=== PATIENT | female | born 1950 | race American Indian/Alaskan Native ===

== ENCOUNTER 2016-12-21 09:48 | Observation (INO) | payer MEDICAID, MEDICARE ==
[2016-12-21 10:00] VITALS: BMI 30.7
--- NOTE | 2016-12-21 11:23 | ED PDOC ---
HPI: Back Time Seen by Provider: 12/21/16 10:49 Chief Complaint (Nursing): Back Pain Chief Complaint (Provider): low back pain History Per: Patient Additional Complaint(s): Patient presents to emergency department with lower back pain that started a few days ago. Denies any fall or trauma. Patient states pain does not radiate to her lower extremities. She is ambulatory with cane which she uses at baseline. The patient has history of arthritis in her legs. She denies any bowel or bladder dysfunction and states that ibuprofen has not helped her low back pain. Past Medical History Reviewed: Historical Data, Nursing Documentation, Vital Signs Vital Signs: Last Vital Signs Temp 98.4 F 12/21/16 10:00 Pulse 79 12/21/16 10:00 Resp 18 12/21/16 10:00 BP 143/74 12/21/16 10:00 Pulse Ox 97 12/21/16 10:00 - Medical History PMH: Arthritis, HTN - Surgical History Surgical History: Appendectomy, Tonsillectomy Other surgeries: tubal ligation, cervical biopsy x 2 - Family History Family History: States: No Known Family Hx, Hypertension - Living Arrangements Living Arrangements: With Family - Social History Current smoker - smoking cessation education provided: Yes (5-6 cigarettes per day) Alcohol: Social Drugs: Denies - Home Medications Home Medications: Ambulatory Orders Medication Instructions Recorded Enalapril/Hydrochlorothiazide 1 tab PO TID 03/20/16 [Enalapril-Hctz 10-25 mg Tablet] Gabapentin [Neurontin] 100 mg PO TID 12/21/16 - Allergies Allergies/Adverse Reactions: Allergies Allergy/AdvReac Type Severity Reaction Status Date / Time shellfish derived AdvReac Severe ITCHING Verified 12/21/16 10:42 metronidazole [From Flagyl] AdvReac ANAPHYLAXIS Verified 12/21/16 10:42 food AdvReac Mild ITCHING Uncoded 03/24/16 10:28 Review of Systems ROS Statement: Except As Marked, All Systems Reviewed And Found Negative Constitutional: Negative for: Fever, Chills Cardiovascular: Negative for: Chest Pain Respiratory: Negative for: Cough Gastrointestinal: Negative for: Nausea, Vomiting Genitourinary Female: Negative for: Dysuria, Frequency, Incontinence, Hematuria Musculoskeletal: Positive for: Back Pain. Negative for: Leg Pain Physical Exam - Reviewed Nursing Documentation Reviewed: Yes Vital Signs Reviewed: Yes - Physical Exam Appears: Positive for: Well, Non-toxic, No Acute Distress Skin: Negative for: Rash Cardiovascular/Chest: Positive for: Regular Rate, Rhythm Respiratory: Positive for: Normal Breath Sounds Gastrointestinal/Abdominal: Positive for: Soft. Negative for: Tenderness Back: Positive for: Vertebral Tenderness (Tenderness across lower lumbar region , no step-off, no CVA tenderness bilaterally, negative bilateral straight leg raise) Extremity: Positive for: Normal ROM. Negative for: Pedal Edema Neurologic/Psych: Positive for: Alert, Oriented, Gait (steady with cane used at baseline) - Laboratory Results Result Diagrams: 12/21/16 14:11 12/21/16 16:23 - ECG Interpretation Of ECG: NSR 63 bpm, 1st degree AV block, reviewed by PA and ED attending O2 Sat by Pulse Oximetry: 97 Pulse Ox Interpretation: Normal - Other Rad L/S Spine X-ray X-Ray: Interpreted by Me, Viewed By Me X-Ray Interpretation: no fx, no dis, marked degenerative changes Bedside chest X-Ray: Interpreted by Me, Viewed By Me X-Ray Interpretation: no acute finding Medical Decision Making Medical Decision Makin66 year old with low back pain. Plan: X-ray L/S Spine Toradol IM PO flexeril Urine dip 12:59 Shortly after patient returned from x-ray and received medications she developed facial swelling and discomfort in her mouth. Patient's is not aware of any known allergies to Toradol and Flexeril. Patient was given Solu-Medrol IV along with Benadryl IV and fluid bolus. She will continue to be monitored. 2:30 Patient was reevaluated 1 hr after meds were given, face still swollen however patient denies any shortness of breath or throat discomfort. No chest pain and shortness of breath or dyspnea on exertion, no rash. Will continue to monitor. 4:30 pm: Patient states face is now more swollen and it is now involving her lips. She denies any shortness of breath or throat discomfort. Dr. Dorado aware, 0.3 mg subcutaneous epinephrine was ordered. PMD is Dr. Taylor, case was d/w Dr. Christiansen, hospitalist who will admit patient to [facility]. Patient is aware of and agrees with admission. K is slightly elevated, specimen hemolyzed, repeat K ordered. Disposition - Clinical Impression Clinical Impression: Allergic reaction caused by a drug, Facial edema - Patient ED Disposition Is Patient to be Admitted: Yes - Disposition Disposition Time: 16:53 Condition: FAIR - Pt Status Changed To: Hospital Disposition Of: Observation - POA Present On Arrival: None Results - Lab Results Lab Results: 12/21/16 14:11 WBC 7.6 RBC 3.96 Hgb 14.3 Hct 41.9 MCV 105.9 H MCH 36.1 H MCHC 34.1 RDW 13.2 Plt Count 213 MPV 9.4 Neut % (Auto) 67.5 Lymph % (Auto) 20.5 [place] % (Auto) 10.0 Eos % (Auto) 0.7 Baso % (Auto) 1.3 Neut # 5.1 Lymph # 1.6 [place] # 0.8 Eos # 0.1 Baso # 0.1
[2016-12-21] MEDS ORDERED: DiphenhydrAMINE 50 mg/ml Inj ONE (12:36)
[2016-12-21] MEDS ORDERED: Sodium Chloride 0.9% 1,000 ML IV STA (13:18)
[2016-12-21] MEDS ORDERED: DiphenhydrAMINE 50 mg/ml Inj IV STA (13:18)
--- NOTE | 2016-12-21 14:28 | RAD ---
PROCEDURE: Lumbar spine dated 12/21/2016. HISTORY: pain COMPARISON: Comparison made with the CT scan abdomen pelvis 03/12/2016 which also imaged the lumbar spine in 3 planes FINDINGS: BONES: No acute compression fractures no retropulsed fragments. Minor chronic appearing anterior stature loss of the T12, L1 and L2 segments likely degenerative in origin of. The vertebral bodies otherwise exhibit normal stature. Slight straightening of the normal lumbar lordosis however vertebral bodies otherwise exhibit normal alignment. Facets normally aligned. DISC SPACES: Minor posterior disc space narrowing seen at the L5-S1 level. Remaining disc space heights are relatively maintained. Small marginal anterolateral and tiny posterior osteophyte formation. OTHER FINDINGS: None. IMPRESSION: No acute fractures. Minor multilevel degenerative spondylosis as described
[2016-12-21 14:35] LABS: BASO # 0.1 K/uL (0.0-0.2); BASO % 1.3 % (0.0-2.0); EOS # 0.1 K/uL (0.0-0.7); EOS % 0.7 % (0.0-4.0); HEMATOCRIT 41.9 % (34.0-47.0); LYMPH # 1.6 K/uL (1.0-4.3); LYMPH % 20.5 % (20.0-40.0); MEAN CELL VOLUME 105.9 fl (81.0-99.0); MEAN CORPUSCULAR HEMOGLOBIN 36.1 pg (27.0-31.0); MEAN CORPUSCULAR HGB CONC 34.1 g/dL (33.0-37.0); MEAN PLATELET VOLUME 9.4 fl (7.2-11.7); MONO # 0.8 K/uL (0.0-0.8); NEUT # 5.1 K/uL (1.8-7.0); NEUT % 67.5 % (50.0-75.0); NRBC % 0.1 % (0.0-0.0); RED CELL DISTRIBUTION WIDTH 13.2 % (11.5-14.5); WHITE BLOOD COUNT 7.6 K/uL (4.8-10.8)
[2016-12-21 16:39] LABS: ALB/GLOB RATIO 1.1 (1.0-2.1); ALKALINE PHOSPHATASE 73 U/L (38-126); ALT/SGPT 34 U/L (9-52); AST/SGOT 45 U/L (14-36); BILIRUBIN,TOTAL 0.8 mg/dl (0.2-1.3); BLOOD UREA NITROGEN 12 mg/dl (7-17); CALCIUM 9.7 mg/dL (8.4-10.2); CARBON DIOXIDE 30 mmol/L (22-30); CHLORIDE 97 mmol/L (98-107); GFR AFRICAN-AMERICAN > 60; GLUCOSE,RANDOM 105 mg/dL (65-105); SODIUM 139 mmol/l (132-148); TOTAL PROTEIN 7.9 G/DL (6.3-8.2)
[2016-12-21 16:40] LABS: POTASSIUM 5.1 MMOL/L (3.6-5.0)
[2016-12-21] MEDS ORDERED: EPINEPHrine 1 mg/ml (1:1000) Inj SC STA ×2 (16:42→19:05)
[2016-12-21] MEDS ORDERED: EPINEPHrine 1 mg/ml (1:1000) Inj ONE ×2 (16:48→18:48)
--- NOTE | 2016-12-21 17:56 | RAD ---
HISTORY: admit COMPARISON: No prior. FINDINGS: LUNGS: There appears to be some minor linear atelectasis left lung base PLEURA: No significant pleural effusion identified, no pneumothorax apparent. CARDIOVASCULAR: Normal. OSSEOUS STRUCTURES: No significant abnormalities. VISUALIZED UPPER ABDOMEN: Normal. OTHER FINDINGS: None. IMPRESSION: Suspect minimal linear atelectasis left left lung base
--- NOTE | 2016-12-21 20:43 | CP.PCM.HP ---
History of Present Illness - History of Present Illness History of Present Illness: 66 y/o female with PMH HTN presented to ER with lower back pain that started a few days ago. She denies any fall or trauma. Patient states that she was cleaning her house and the pain started afterwards.As per her pain was located on the lower lumbar area, sharp , does not radiate to her lower extremities with no weakness , no bowel or bladder dysfunction. She is ambulatory with cane which she uses at baseline. The patient has history of arthritis in her legs. She took Ibuprofen with minimal relief of her pain so decided to come to ER. In ER she was given Flexeril and toradol IV. Patient was noticed to develop facial edema and emerson oral swelling with no SOB or rash. She was treated with Epipen SQ and methylprednisolone. Patient still with significant perioral swelling at present so will place under observation in telemetry. She denies , CP, SOB, palpitations, PND, orthopnea, urinary or changes in bowel movements. She also gives history of prior similar reaction to an unknown allergen and has epipen at home. Allergies ; cyclobenzaprine, shellfish,iodine, flagyl PMH ; HTN Medication ; Enalapril, gabapentin ,ibuprofen Surgery; appendectomy, tonsillectomy,tubal ligation Family history ; mother had DM, emphysema father had DM, HTN,thyroid disorder Sister has thyroid disorder and history bresat cancer Social history ; , lives in [place] , smokes 4 cigg /day, drinks daily 4 glasses wine / day , sometimes smokes weed , does not work, has 23 children, walks with a cane ROS ;14 point review of systems negative except above Present on Admission - Present on Admission Any Indicators Present on Admission: No History of DVT/PE: No History of Uncontrolled Diabetes: No Review of Systems - Review of Systems All systems: reviewed and no additional remarkable complaints except Past Patient History - Infectious Disease Hx of Infectious Diseases: None - Tetanus Immunizations Tetanus Immunization: Unknown - Past Medical History & Family History Past Medical History?: Yes Past Family History: Reviewed and not pertinent - Past Social History Smoking Status: Light Smoker < 10 Cigarettes Daily Chewing Tobacco Use: No Cigar Use: No Alcohol: > 2 Drinks/Day Drugs: Cannabis Home Situation {Lives}: Alone Domestic Violence: Negative - CARDIAC Hx Hypertension: Yes - HEMATOLOGICAL/ONCOLOGICAL Hx Human Immunodeficiency Virus (HIV): No - MUSCULOSKELETAL/RHEUMATOLOGICAL Hx Arthritis: Yes - GASTROINTESTINAL Hx Bowel Surgery: Yes (partial bowel resection) - PSYCHIATRIC Hx Psychophysiologic Disorder: No Hx Substance Use: No - SURGICAL HISTORY Hx Appendectomy: Yes Hx Tonsillectomy: Yes - ANESTHESIA Hx Anesthesia: Yes Hx Anesthesia Reactions: No Meds Allergies/Adverse Reactions: Allergies Allergy/AdvReac Type Severity Reaction Status Date / Time cyclobenzaprine HCl Allergy ANGIOEDEMA Verified 12/21/16 19:47 [From Flexeril] shellfish derived AdvReac Severe ITCHING Verified 12/21/16 10:42 metronidazole [From Flagyl] AdvReac ANAPHYLAXIS Verified 12/21/16 10:42 food AdvReac Mild ITCHING Uncoded 03/24/16 10:28 Physical Exam - Constitutional Appears: Non-toxic, No Acute Distress - Head Exam Head Exam: ATRAUMATIC Additional comments: emerson oral swelling and facial swelling - Eye Exam Eye Exam: EOMI, PERRL Pupil Exam: NORMAL ACCOMODATION - ENT Exam ENT Exam: Mucous Membranes Moist, Normal Oropharynx - Neck Exam Neck exam: Positive for: Full Rom, Normal Inspection - Respiratory Exam Respiratory Exam: Clear to Auscultation Bilateral, NORMAL BREATHING PATTERN. absent: Rales, Rhonchi, Wheezes - Cardiovascular Exam Cardiovascular Exam: REGULAR RHYTHM, RRR, +S1, +S2. absent: JVD - GI/Abdominal Exam GI & Abdominal Exam: Normal Bowel Sounds, Soft. absent: Distended, Guarding, Rebound - Rectal Exam Rectal Exam: Deferred - Extremities Exam Extremities exam: Positive for: normal capillary refill, normal inspection, pedal pulses present. Negative for: calf tenderness, pedal edema - Back Exam Back exam: NORMAL INSPECTION. absent: CVA tenderness (L), CVA tenderness (R), paraspinal tenderness, tenderness, vertebral tenderness - Neurological Exam Neurological exam: Alert, CN II-XII Intact, Oriented x3, Reflexes Normal - Psychiatric Exam Psychiatric exam: Normal Affect, Normal Mood - Skin Skin Exam: Dry, Intact, Normal Color, Warm Results - Vital Signs Recent Vital Signs: Last Vital Signs Temp 98.5 F 12/21/16 20:05 Pulse 82 12/21/16 20:05 Resp 14 12/21/16 20:05 BP 134/90 12/21/16 20:05 Pulse Ox 98 12/21/16 20:05 - Labs Result Diagrams: 12/21/16 14:11 12/21/16 17:37 Labs: Laboratory Results - last 24 hr 12/21/16 12/21/16 16:23 17:37 Sodium 139 Potassium 5.1 H 3.9 Chloride 97 L Carbon Dioxide 30 Anion Gap 17 BUN 12 Creatinine 0.9 Est GFR ( Amer) > 60 Est GFR (Non-Af Amer) > 60 Random Glucose 105 Calcium 9.7 Total Bilirubin 0.8 AST 45 H D ALT 34 Alkaline Phosphatase 73 Total Protein 7.9 Albumin 4.1 Globulin 3.8 Albumin/Globulin Ratio 1.1 - Imaging and Cardiology Chest x-ray Additional comment: no acute pathology x ray spine Additional comment: no acute fracture Assessment & Plan (1) Allergic reaction caused by a drug Status: Acute Priority: High Comment: place under observation in telemetry. Start Solumedrol 60 mg IV Q8 , Benadryl (2) Back pain Status: Acute Comment: Motrin PRN (3) Hypertension Status: Chronic Priority: Medium Comment: resume home meds Enalapril (4) DVT prophylaxis Status: Acute Comment: SCD
[2016-12-21] MEDS ORDERED: methylPREDNISolone 60 MG in Sodium Chloride 0.9% 50 ML IVPB SCH (21:00)
[2016-12-22] MEDS: methylPREDNISolone 60 MG in Sodium Chloride 0.9% 50 ML IVPB SCH ×2 (05:37→14:16)
[2016-12-22 06:44] LABS: HEMATOCRIT 41.6 % (34.0-47.0); MEAN CELL VOLUME 105.8 fl (81.0-99.0); MEAN CORPUSCULAR HEMOGLOBIN 35.6 pg (27.0-31.0); MEAN CORPUSCULAR HGB CONC 33.7 g/dL (33.0-37.0); RED CELL DISTRIBUTION WIDTH 12.6 % (11.5-14.5); WHITE BLOOD COUNT 8.3 K/uL (4.8-10.8)
[2016-12-22 06:45] LABS: BLOOD UREA NITROGEN 19 mg/dl (7-17); CALCIUM 9.5 mg/dL (8.4-10.2); CARBON DIOXIDE 28 mmol/L (22-30); CHLORIDE 95 mmol/L (98-107); GFR AFRICAN-AMERICAN > 60; GLUCOSE,RANDOM 192 mg/dL (65-105); POTASSIUM 3.6 MMOL/L (3.6-5.0); SODIUM 137 mmol/l (132-148)
[2016-12-22 07:21] LABS: PARTIAL THROMBOPLASTIN TIME 27.8 SECONDS (23.3-32.5)
[2016-12-22] MEDS ORDERED: Patient's Own Med (Enalapril/Hydrochlorothiazide [Enalapril-Hctz 10-25 Mg Tablet] 1 TAB) PO SCH ×2 (09:00)
[2016-12-22] MEDS ORDERED: Enoxaparin 40 mg Syringe SC SCH (09:00)
[2016-12-22] MEDS ORDERED: Pantoprazole 40 mg EC Tab PO SCH (09:00)
--- NOTE | 2016-12-22 09:01 | CARD ---
APPROVED REPORT EKG Measurement Heart [id number] <Conclusion> Sinus rhythm with marked sinus arrhythmia with 1st degree AV block Otherwise normal ECG
--- NOTE | 2016-12-22 09:53 | CP.PCM.DIS ---
Provider - Provider Date of Admission: 12/21/16 14:14 Attending physician: Chirag Christiansen MD Primary care physician: Dr. Claudia Dominguez Time Spent in preparation of Discharge (in minutes): 20 Diagnosis - Discharge Diagnosis (1) Allergic reaction caused by a drug Status: Acute Priority: High (2) Back pain Status: Acute (3) Hypertension Status: Chronic Priority: Medium (4) DVT prophylaxis Status: Acute Hospital Course - Lab Results Lab Results: Most Recent Lab Values WBC 8.3 K/uL (4.8-10.8) 12/22/16 04:30 RBC 3.93 Mil/uL (3.80-5.20) 12/22/16 04:30 Hgb 14.0 g/dL (12.0-16.0) 12/22/16 04:30 Hct 41.6 % (34.0-47.0) 12/22/16 04:30 MCV 105.8 fl (81.0-99.0) H 12/22/16 04:30 MCH 35.6 pg (27.0-31.0) H 12/22/16 04:30 MCHC 33.7 g/dL (33.0-37.0) 12/22/16 04:30 RDW 12.6 % (11.5-14.5) 12/22/16 04:30 Plt Count 216 K/uL (130-400) 12/22/16 04:30 MPV 9.4 fl (7.2-11.7) 12/21/16 14:11 Neut % (Auto) 67.5 % (50.0-75.0) 12/21/16 14:11 Lymph % (Auto) 20.5 % (20.0-40.0) 12/21/16 14:11 [place] % (Auto) 10.0 % (0.0-10.0) 12/21/16 14:11 Eos % (Auto) 0.7 % (0.0-4.0) 12/21/16 14:11 Baso % (Auto) 1.3 % (0.0-2.0) 12/21/16 14:11 Neut # 5.1 K/uL (1.8-7.0) 12/21/16 14:11 Lymph # 1.6 K/uL (1.0-4.3) 12/21/16 14:11 [place] # 0.8 K/uL (0.0-0.8) 12/21/16 14:11 Eos # 0.1 K/uL (0.0-0.7) 12/21/16 14:11 Baso # 0.1 K/uL (0.0-0.2) 12/21/16 14:11 PT 10.0 SECONDS (9.6-11.2) 12/22/16 04:30 INR 0.96 (0.92-1.08) 12/22/16 04:30 APTT 27.8 SECONDS (23.3-32.5) 12/22/16 04:30 Sodium 137 mmol/l (132-148) 12/22/16 04:30 Potassium 3.6 MMOL/L (3.6-5.0) 12/22/16 04:30 Chloride 95 mmol/L (98-107) L 12/22/16 04:30 Carbon Dioxide 28 mmol/L (22-30) 12/22/16 04:30 Anion Gap 18 (10-20) 12/22/16 04:30 BUN 19 mg/dl (7-17) H 12/22/16 04:30 Creatinine 1.1 mg/dL (0.7-1.2) 12/22/16 04:30 Est GFR ( Amer) > 60 12/22/16 04:30 Est GFR (Non-Af Amer) 50 12/22/16 04:30 Random Glucose 192 mg/dL (65-105) H 12/22/16 04:30 Calcium 9.5 mg/dL (8.4-10.2) 12/22/16 04:30 Total Bilirubin 0.8 mg/dl (0.2-1.3) 12/21/16 16:23 AST 45 U/L (14-36) H D 12/21/16 16:23 ALT 34 U/L (9-52) 12/21/16 16:23 Alkaline Phosphatase 73 U/L (38-126) 12/21/16 16:23 Total Protein 7.9 G/DL (6.3-8.2) 12/21/16 16:23 Albumin 4.1 g/dL (3.5-5.0) 12/21/16 16:23 Globulin 3.8 gm/dL (2.2-3.9) 12/21/16 16:23 Albumin/Globulin Ratio 1.1 (1.0-2.1) 12/21/16 16:23 - Hospital Course Hospital Course: 66 y/o female with PMH HTN presented to ER with lower back pain that started a few days ago. She denies any fall or trauma. Patient states that she was cleaning her house and the pain started afterwards.As per her pain was located on the lower lumbar area, sharp , does not radiate to her lower extremities with no weakness , no bowel or bladder dysfunction. She is ambulatory with cane which she uses at baseline. The patient has history of arthritis in her legs. She took Ibuprofen with minimal relief of her pain so decided to come to ER. In ER she was given Flexeril and toradol IV. Patient was noticed to develop facial edema and emerson oral swelling with no SOB or rash. She was treated with Epipen SQ and methylprednisolone. Patient still had significant perioral swelling so was placed under observation in telemetry and started on Solumderol 60 mg IV Q8 and BenaDryl PRN . At present patient doing well, facial swelling decreased She denies , CP, SOB, palpitations, PND, orthopnea, urinary or changes in bowel movements. She has history of prior similar reaction to an unknown allergen and has epipen at home. Will discharge patient home. Follow up with risk lead for allergy test as out patient (1) Allergic reaction caused by a drug improved Received Solumedrol, epinephrine SQ, Benadryl (2) Back pain resolved most likely muskuloskeletal Motrin PRN (3) Hypertension Chronic, labile resumed home meds Enalapril/ HCTZ Discharge Exam - Head Exam Head Exam: ATRAUMATIC, NORMOCEPHALIC - Eye Exam Eye Exam: EOMI, Normal appearance, Periorbital swelling (more on the left ), PERRL Pupil Exam: NORMAL ACCOMODATION - ENT Exam ENT Exam: Mucous Membranes Moist, Normal Exam - Neck Exam Neck exam: Full Rom, Normal Inspection - Respiratory Exam Respiratory Exam: Clear to PA & Lateral, NORMAL BREATHING PATTERN. absent: Rales, Rhonchi, Wheezes - Cardiovascular Exam Cardiovascular Exam: REGULAR RHYTHM, RRR, +S1, +S2. absent: JVD - GI/Abdominal Exam GI & Abdominal Exam: Normal Bowel Sounds, Soft. absent: Distended, Guarding, Rebound, Tenderness - Rectal Exam Rectal Exam: Deferred - Extremities Exam Extremities exam: normal capillary refill, normal inspection, pedal pulses present - Back Exam Back exam: NORMAL INSPECTION - Neurological Exam Neurological exam: Alert, CN II-XII Intact, Oriented x3, Reflexes Normal - Psychiatric Exam Psychiatric exam: Normal Affect, Normal Mood - Skin Skin Exam: Dry, Intact, Normal Color, Warm Discharge Plan - Discharge Medications Prescriptions: DiphenhydrAMINE [Benadryl] 25 mg PO Q8 PRN #10 cap PRN Reason: Allergy Symptoms - Follow Up Plan Condition: GOOD Patient education suggested?: Yes Additional Instructions: Follow up with risk lead as out patient Referrals: Kendy Taylor MD [Medical Doctor] -
[2016-12-22 16:01] VITALS: BP 138/84; PULSE 64; RESP 20; TEMP 98.5; O2SAT 97
== END 2016-12-22 16:00 | disposition home or self-care (01) ==
LOC: H.ER 09:48 → H.EROBSV 14:14 → H.ERHOLD 14:44 → H.TEL 22:05
PROVIDERS: ADMIT Hospitalist; ATTEND Hospitalist
DX: M54.5 Low back pain (principal); M19.90 Unspecified osteoarthritis, unspecified site; T48.1X5A Adverse effect of skeletal muscle relaxants [neuromuscular blocking agents], initial encounter; T39.8X5A Adverse effect of other nonopioid analgesics and antipyretics, not elsewhere classified, initial encounter; I10 Essential (primary) hypertension; F17.210 Nicotine dependence, cigarettes, uncomplicated; Y92.239 Unspecified place in hospital as the place of occurrence of the external cause; R60.9 Edema, unspecified
CPT/HCPCS: 36415; 71010; 72100; 80048; 80053; 84132; 85025; 85027; 85610; 85730; 93005; 96365; 96372; 96374; 99285; G0378; J0171; J1200; J1650; J1885; J2930; J7040

== ENCOUNTER 2017-07-12 12:28 | Emergency (ER) | payer MEDICARE ==
[2017-07-12 12:29] VITALS: BMI 30.7
[2017-07-12 12:49] VITALS: BP 138/80; PULSE 72; RESP 18; TEMP 97.7; O2SAT 98
--- NOTE | 2017-07-12 13:06 | ED PDOC ---
HPI: General Adult Time Seen by Provider: 07/12/17 12:49 Chief Complaint (Nursing): Headache Chief Complaint (Provider): ran out of blood pressure and asthma meds History Per: Patient (states that she has been visiting [place] for the past 7 months and has run out of her usual meds for the past 1 1/2 weeks. She had intermittent HAs but denies other neurologic symptoms. She denies fever or chills. She does not have chest pain or shortness of breath.) History/Exam Limitations: no limitations Past Medical History Reviewed: Historical Data, Nursing Documentation, Vital Signs Vital Signs: Last Vital Signs Temp 97.7 F 07/12/17 12:44 Pulse 72 07/12/17 12:44 Resp 18 07/12/17 12:44 BP 138/80 07/12/17 12:44 Pulse Ox 98 07/12/17 12:44 - Medical History PMH: Arthritis (knees), HTN Denies: HIV, Chronic Kidney Disease - Surgical History Surgical History: Appendectomy, Tonsillectomy - Family History Family History: States: No Known Family Hx, Hypertension - Living Arrangements Living Arrangements: With Family - Social History Current smoker - smoking cessation education provided: Yes Alcohol: Occasional Drugs: Denies - Home Medications Home Medications: Ambulatory Orders Medication Instructions Recorded Enalapril/Hydrochlorothiazide 1 tab PO TID 03/20/16 [Enalapril-Hctz 10-25 mg Tablet] Gabapentin [Neurontin] 100 mg PO TID 12/21/16 DiphenhydrAMINE [Benadryl] 25 mg PO Q8 PRN #10 cap 12/22/16 Epinephrine [Epipen Auto-Injector] 0.3 mg SC ONCE PRN #1 ml 12/22/16 Albuterol 0.083% [Albuterol 0.083% 2.5 mg IH Q4H PRN #50 neb 07/12/17 Inhal [place] (2.5 mg/3 ml) UD] amLODIPine [Norvasc] 5 mg PO DAILY #30 tab 07/12/17 hydroCHLOROthiazide [Hydrodiuril] 25 mg PO DAILY #30 tab 07/12/17 - Allergies Allergies/Adverse Reactions: Allergies Allergy/AdvReac Type Severity Reaction Status Date / Time cyclobenzaprine HCl Allergy ANGIOEDEMA Verified 12/21/16 19:47 [From Flexeril] shellfish derived AdvReac Severe ITCHING Verified 12/21/16 10:42 metronidazole [From Flagyl] AdvReac ANAPHYLAXIS Verified 12/21/16 10:42 food AdvReac Mild ITCHING Uncoded 03/24/16 10:28 Review of Systems ROS Statement: Except As Marked, All Systems Reviewed And Found Negative Constitutional: Negative for: Fever, Chills Cardiovascular: Negative for: Chest Pain, Palpitations Respiratory: Negative for: Cough, Shortness of Breath Gastrointestinal: Negative for: Nausea, Vomiting, Abdominal Pain Physical Exam - Reviewed Nursing Documentation Reviewed: Yes Vital Signs Reviewed: Yes - Physical Exam Appears: Positive for: Well, Non-toxic, No Acute Distress Head Exam: Positive for: ATRAUMATIC, NORMAL INSPECTION, NORMOCEPHALIC Skin: Positive for: Normal Color, Warm, DRY Eye Exam: Positive for: EOMI, Normal appearance, PERRL ENT: Positive for: Normal ENT Inspection Neck: Positive for: Normal, Painless ROM Cardiovascular/Chest: Positive for: Regular Rate, Rhythm Respiratory: Positive for: CNT, Normal Breath Sounds Gastrointestinal/Abdominal: Positive for: Normal Exam, Bowel Sounds, Soft Back: Positive for: Normal Inspection Extremity: Positive for: Normal ROM Neurologic/Psych: Positive for: Alert, Oriented - ECG O2 Sat by Pulse Oximetry: 98 Disposition - Clinical Impression Clinical Impression: Hypertension, Medication refill - Patient ED Disposition Is Patient to be Admitted: No Doctor Will See Patient In The: Office Counseled Patient/Family Regarding: Diagnosis, Need For Followup, Rx Given - Disposition Referrals: [facility] [Outside] [facility] [Outside] [facility] [Outside] [facility] [Outside] Disposition: Routine/Home Disposition Time: 13:00 Condition: STABLE Prescriptions: Albuterol 0.083% [Albuterol 0.083% Inhal [place] (2.5 mg/3 ml) UD] 2.5 mg IH Q4H PRN #50 neb PRN Reason: Shortness Of Breath amLODIPine [Norvasc] 5 mg PO DAILY #30 tab hydroCHLOROthiazide [Hydrodiuril] 25 mg PO DAILY #30 tab Instructions: Hypertension (ED) - POA Present On Arrival: None
== END 2017-07-12 13:34 | disposition home or self-care (01) ==
LOC: H.ER 12:28
DX: I10 Essential (primary) hypertension (principal); Z76.0 Encounter for issue of repeat prescription

== ENCOUNTER 2017-11-08 15:33 | Inpatient (IN) | payer MEDICARE ==
[2017-11-08 15:34] VITALS: BMI 30.7
--- NOTE | 2017-11-08 16:57 | ED PDOC ---
Lower Extremity Pain/Injury Time Seen by Provider: 11/08/17 15:54 Chief Complaint (Nursing): Lower Extremity Problem/Injury Chief Complaint (Provider): Lower Extremity Problem/Injury History Per: Patient History/Exam Limitations: no limitations Onset/Duration Of Symptoms: Days Current Symptoms Are (Timing): Still Present Additional Complaint(s): 67 year old female with a past medical history of hypertension and deep vein thrombosis who presents to the emergency department with a complaint of a right leg swelling that started on 11/04/2017, and became progressively worse with pain. Patient initially thought it was due to extra salt in her diet and tried to elevate her leg frequently but has had no improvement. Patient feels pain now when she touches her leg. States she has a history of deep vein thrombosis about 23 years ago after having an appendectomy. Reports she had a right breast biopsy around the end of September 2017 and diagnosed with breast cancer. Patient is also complaining of increased shortness of breath over the last 2 days with some increased congestion and cough but no fever. PMD: Dr. Claudia JOHNSON Past Medical History Reviewed: Historical Data, Nursing Documentation, Vital Signs Vital Signs: Last Vital Signs Temp 98.5 F 11/08/17 15:45 Pulse 98 H 11/08/17 15:45 Resp 18 11/08/17 15:45 BP 153/91 H 11/08/17 15:45 Pulse Ox 97 11/08/17 15:45 - Medical History PMH: Arthritis (knees), HTN Denies: HIV, Chronic Kidney Disease - Surgical History Surgical History: Appendectomy, Tonsillectomy - Family History Family History: States: Hypertension - Immunization History Hx Tetanus Toxoid Vaccination: No Hx Influenza Vaccination: No Hx Pneumococcal Vaccination: No - Home Medications Home Medications: Ambulatory Orders Medication Instructions Recorded Hydrochlorothiazide [Microzide] 25 mg PO DAILY 11/08/17 amLODIPine [Norvasc] 5 mg PO DAILY 11/08/17 - Allergies Allergies/Adverse Reactions: Allergies Allergy/AdvReac Type Severity Reaction Status Date / Time cyclobenzaprine HCl Allergy ANGIOEDEMA Verified 12/21/16 19:47 [From Flexeril] enalapril Allergy RASH Verified 11/08/17 16:14 iodine Allergy SWELLING Verified 10/30/17 10:43 lisinopril Allergy SWELLING Verified 10/30/17 11:21 shellfish derived AdvReac Severe ITCHING Verified 12/21/16 10:42 metronidazole [From Flagyl] AdvReac ANAPHYLAXIS Verified 12/21/16 10:42 food AdvReac Mild ITCHING Uncoded 03/24/16 10:28 Review of Systems ROS Statement: Except As Marked, All Systems Reviewed And Found Negative (As per HPI, otherwise negative) Constitutional: Negative for: Fever ENT: Positive for: Nose Congestion Respiratory: Positive for: Cough, Shortness of Breath Musculoskeletal: Positive for: Leg Pain (Right leg swelling) Physical Exam - Reviewed Nursing Documentation Reviewed: Yes Vital Signs Reviewed: Yes - Physical Exam Appears: Positive for: Non-toxic, In Acute Distress (Mild painful distress) Skin: Positive for: Warm, Dry Eye Exam: Positive for: EOMI, PERRL ENT: Negative for: Pharyngeal Erythema, Tonsillar Exudate Neck: Positive for: Painless ROM, Supple Cardiovascular/Chest: Positive for: Other (Surgical wound noted to the lower lateral region of the right breast. Wound clean, dry, and intact. ) Respiratory: Positive for: Decreased Breath Sounds (Diffuse). Negative for: Rhonchi, Wheezing, Respiratory Distress Gastrointestinal/Abdominal: Positive for: Soft. Negative for: Tenderness, Mass , Distended Back: Positive for: Normal Inspection. Negative for: Decreased ROM Extremity: Positive for: Pedal Edema (Diffuse edematous with mild pitting. ), Calf Tenderness Lymphatic: Negative for: Adenopathy Neurologic/Psych: Positive for: Alert. Negative for: Motor/Sensory Deficits - Laboratory Results Result Diagrams: 11/09/17 06:11 11/09/17 06:11 - ECG O2 Sat by Pulse Oximetry: 97 (RA) Pulse Ox Interpretation: Normal Medical Decision Making Medical Decision Making: Time: 163 Initial Impression: Right leg swelling. Differential include but not limited to deep vein thrombosis (DVT), congestive heart failure (CHF), fluid overload, and pulmonary embolism. Initial Plan: --Labs and chemistry work up ordered --Influenza A B --Chest x-ray --Extremity US --Reevaluation Time: 1656 --Extremity Ultrasound FINDINGS: COMMON FEMORAL VEIN: Unremarkable. SUPERFICAL FEMORAL VEIN: Unremarkable. POPLITEAL VEIN: Unremarkable. POSTERIOR TIBIAL VEIN: Unremarkable. OTHER FINDINGS: None. IMPRESSION: No evidence of deep venous thrombosis in the right lower extremity. Time: 1712 --Positive for influenza a On reeval and pt now wheezing diffusely. Nebulizer ordered. Pt with COPD exacerbation, flu and possible PE (unable to obtain CT due to iodine allergy.) Needs hospitalization for management. BOWEN Landrum Hospitalist (for PMD [facility] Dr Taylor) Scribe Attestation: Documented by Morena Lord, acting as a scribe for Marianne Lutz MD. Provider Scribe Attestation: All medical record entries made by the Scribe were at my direction and personally dictated by me. I have reviewed the chart and agree that the record accurately reflects my personal performance of the history, physical exam, medical decision making, and the department course for this patient. I have also personally directed, reviewed, and agree with the discharge instructions and disposition. Disposition - Clinical Impression Clinical Impression: COPD exacerbation, Influenza, Leg edema, right Discussed With Dr.: Francisco Landrum Doctor Will See Patient In The: ED Counseled Patient/Family Regarding: Studies Performed, Diagnosis - Disposition Disposition Time: 18:45 Condition: GUARDED - Pt Status Changed To: Hospital Disposition Of: Observation - POA Present On Arrival: Deep Vein Thrombosis / PE (DVT history, possible current PE)
--- NOTE | 2017-11-08 16:59 | US ---
PROCEDURE: Right lower extremity venous duplex Doppler. HISTORY: RIGHT leg swelling h/o dvt COMPARISON: None available. TECHNIQUE: Common femoral, superficial femoral, popliteal and posterior tibial veins were evaluated. Flow was assessed with color Doppler, compressibility, assessment of phasic flow and augmentation response. FINDINGS: COMMON FEMORAL VEIN: Unremarkable. SUPERFICIAL FEMORAL VEIN: Unremarkable. POPLITEAL VEIN: Unremarkable. POSTERIOR TIBIAL VEIN: Unremarkable. OTHER FINDINGS: None. IMPRESSION: No evidence of deep venous thrombosis in the right lower extremity.
[2017-11-08 17:21] LABS: BASO % 0.5 % (0.0-2.0); EOS % 0.1 % (0.0-4.0); HEMOGLOBIN 14.6 g/dL (12.0-16.0); LYMPH # 1.2 K/uL (1.0-4.3); LYMPH % 15.6 % (20.0-40.0); MEAN CELL VOLUME 109.7 fl (81.0-99.0); MEAN CORPUSCULAR HEMOGLOBIN 37.8 pg (27.0-31.0); MEAN CORPUSCULAR HGB CONC 34.5 g/dL (33.0-37.0); MEAN PLATELET VOLUME 8.4 fl (7.2-11.7); MONO # 0.5 K/uL (0.0-0.8); MONO % 6.3 % (0.0-10.0); NEUT # 5.9 K/uL (1.8-7.0); NEUT % 77.5 % (50.0-75.0); NRBC % 0.1 % (0.0-0.0); RBC 3.87 Mil/uL (3.80-5.20); RED CELL DISTRIBUTION WIDTH 13.7 % (11.5-14.5); WHITE BLOOD COUNT 7.7 K/uL (4.8-10.8)
[2017-11-08 17:27] LABS: INR 0.9 (0.9-1.2); PROTHROMBIN TIME 10.1 Seconds (9.8-13.1)
[2017-11-08 18:18] LABS: ALB/GLOB RATIO 1.2 (1.0-2.1); ALT/SGPT 36 U/L (9-52); AST/SGOT 44 U/L (14-36); BLOOD UREA NITROGEN 9 mg/dl (7-17); CALCIUM 9.2 mg/dL (8.4-10.2); GFR AFRICAN-AMERICAN > 60; GFR NON-AFRICAN AMERICAN > 60; MAGNESIUM 1.5 MG/DL (1.6-2.3)
[2017-11-08 18:31] LABS: B-TYPE NATRIURETIC PEPTIDE 74.8 pg/ml (0-900)
--- NOTE | 2017-11-08 18:48 | RAD ---
HISTORY: Cough, shortness of breath COMPARISON: 12/21/2016 TECHNIQUE: Chest PA and lateral FINDINGS: LUNGS: No active pulmonary disease. PLEURA: No significant pleural effusion identified. No pneumothorax apparent. CARDIOVASCULAR: No radiographic findings to suggest acute or significant cardiovascular disease. OSSEOUS STRUCTURES: No significant abnormalities. VISUALIZED UPPER ABDOMEN: Normal. OTHER FINDINGS: None. IMPRESSION: No active disease. No significant interval change compared to the prior examination(s).
[2017-11-08] MEDS ORDERED: Albuterol-Ipratrop 3 mg / 0.5 (3 ml) UD INH STA (18:55)
[2017-11-08] MEDS ORDERED: Magnesium Oxide 400 mg Tab UD PO STA (19:14)
[2017-11-08] MEDS ORDERED: Potassium Chloride 20 mEq ER Tab PO STA (19:14)
[2017-11-08] MEDS ORDERED: Enoxaparin 100 mg Syringe SC STA (19:31)
--- NOTE | 2017-11-08 19:52 | CP.PCM.HP ---
History of Present Illness - History of Present Illness History of Present Illness: 67 yo female with history of HTN and diagnosed recently with right breast cancer after biopsy last week came in complaining of bilateral leg swelling associated with SOB after walking a short distance and episodes of difficulty breathing at night. Condition has been going on for about a month sometimes accompanied with left sided chest discomfort. Niece advised her to be checked up in the ER fearing she might have clots in the leg specially since she had history of DVT in the right upper femoral about 20 yrs ago. Patient also added having increased nasal congestion and coughing the past few days. Present on Admission - Present on Admission Any Indicators Present on Admission: Yes History of DVT/PE: Yes History of Uncontrolled Diabetes: No Urinary Catheter: No Decubitus Ulcer Present: No Review of Systems - Review of Systems All systems: reviewed and no additional remarkable complaints except (aside from those mentioned above, 14 point system review were negative by me) Past Patient History - Infectious Disease Hx of Infectious Diseases: None - Tetanus Immunizations Tetanus Immunization: Unknown - Past Medical History & Family History Past Medical History?: Yes - Past Social History Smoking Status: Light Smoker < 10 Cigarettes Daily Alcohol: > 2 Drinks/Day Drugs: Denies Home Situation {Lives}: With Family - CARDIAC Hx Hypertension: Yes - PULMONARY Hx Respiratory Disorders: No - NEUROLOGICAL Hx Neurological Disorder: No - HEENT Hx HEENT Problems: No - RENAL Hx Chronic Kidney Disease: No - ENDOCRINE/METABOLIC Hx Endocrine Disorders: No - HEMATOLOGICAL/ONCOLOGICAL Hx Cancer: Yes (right breast cancer diagnosed about a week ago) Hx Human Immunodeficiency Virus (HIV): No - INTEGUMENTARY Hx Dermatological Problems: No - MUSCULOSKELETAL/RHEUMATOLOGICAL Hx Arthritis: Yes (knees) - GASTROINTESTINAL Hx Gastrointestinal Disorders: Yes Hx Bowel Surgery: Yes (partial bowel resection) - GENITOURINARY/GYNECOLOGICAL Hx Genitourinary Disorders: No - PSYCHIATRIC Hx Psychophysiologic Disorder: No Hx Substance Use: Yes - SURGICAL HISTORY Hx Surgeries: Yes Hx Appendectomy: Yes Hx Breast Biopsy: Yes (right breast biopsied a week ago) Hx Tonsillectomy: Yes Other/Comment: partial bowel resection - ANESTHESIA Hx Anesthesia: Yes Hx Anesthesia Reactions: No Hx Malignant Hyperthermia: No Meds Allergies/Adverse Reactions: Allergies Allergy/AdvReac Type Severity Reaction Status Date / Time cyclobenzaprine HCl Allergy ANGIOEDEMA Verified 12/21/16 19:47 [From Flexeril] enalapril Allergy RASH Verified 11/08/17 16:14 iodine Allergy SWELLING Verified 10/30/17 10:43 lisinopril Allergy SWELLING Verified 10/30/17 11:21 shellfish derived AdvReac Severe ITCHING Verified 12/21/16 10:42 metronidazole [From Flagyl] AdvReac ANAPHYLAXIS Verified 12/21/16 10:42 food AdvReac Mild ITCHING Uncoded 03/24/16 10:28 Physical Exam - Constitutional Appears: No Acute Distress - Head Exam Head Exam: ATRAUMATIC - Eye Exam Eye Exam: absent: Scleral icterus - ENT Exam ENT Exam: Mucous Membranes Moist - Neck Exam Neck exam: Negative for: Meningismus - Respiratory Exam Respiratory Exam: absent: Rhonchi, Wheezes, Respiratory Distress - Cardiovascular Exam Cardiovascular Exam: REGULAR RHYTHM, +S1, +S2 - GI/Abdominal Exam GI & Abdominal Exam: Soft. absent: Tenderness - Rectal Exam Rectal Exam: Deferred - Extremities Exam Extremities exam: Positive for: pedal edema (non-pitting pedal edema), pedal pulses present. Negative for: calf tenderness - Back Exam Back exam: absent: tenderness - Neurological Exam Neurological exam: Alert, Oriented x3 - Psychiatric Exam Psychiatric exam: Normal Affect - Skin Skin Exam: Dry, Intact Results - Vital Signs Recent Vital Signs: Last Vital Signs Temp 98.5 F 11/08/17 15:45 Pulse 98 H 11/08/17 15:45 Resp 18 11/08/17 15:45 BP 153/91 H 11/08/17 15:45 Pulse Ox 97 11/08/17 18:27 - Labs Result Diagrams: 11/08/17 17:13 11/08/17 17:57 Labs: Laboratory Results - last 24 hr 11/08/17 11/08/17 11/08/17 17:13 17:13 17:13 WBC 7.7 RBC 3.87 Hgb 14.6 Hct 42.5 MCV 109.7 H D MCH 37.8 H MCHC 34.5 RDW 13.7 Plt Count 228 MPV 8.4 Neut % (Auto) 77.5 H Lymph % (Auto) 15.6 L [place] % (Auto) 6.3 Eos % (Auto) 0.1 Baso % (Auto) 0.5 Neut # (Auto) 5.9 Lymph # (Auto) 1.2 [place] # (Auto) 0.5 Eos # (Auto) 0.0 Baso # (Auto) 0.0 PT 10.1 INR 0.9 APTT 28.0 D-Dimer, Quantitative Cancelled Sodium Cancelled Potassium Cancelled Chloride Cancelled Carbon Dioxide Cancelled Anion Gap Cancelled BUN Cancelled Creatinine Cancelled Est GFR ( Amer) Cancelled Est GFR (Non-Af Amer) Cancelled Random Glucose Cancelled Calcium Cancelled Phosphorus Cancelled Magnesium Cancelled Total Bilirubin Cancelled AST Cancelled ALT Cancelled Alkaline Phosphatase Cancelled Troponin I Cancelled NT-Pro-B Natriuret Pep Cancelled Total Protein Cancelled Albumin Cancelled Globulin Cancelled Albumin/Globulin Ratio Cancelled Influenza Typ A,B (EIA) 11/08/17 11/08/17 11/08/17 17:13 17:57 17:57 WBC RBC Hgb Hct MCV MCH MCHC RDW Plt Count MPV Neut % (Auto) Lymph % (Auto) [place] % (Auto) Eos % (Auto) Baso % (Auto) Neut # (Auto) Lymph # (Auto) [place] # (Auto) Eos # (Auto) Baso # (Auto) PT INR APTT D-Dimer, Quantitative 243 H Sodium 137 Potassium 3.4 L Chloride 95 L Carbon Dioxide 33 H Anion Gap 12 BUN 9 Creatinine 0.8 Est GFR ( Amer) > 60 Est GFR (Non-Af Amer) > 60 Random Glucose 93 Calcium 9.2 Phosphorus 2.9 Magnesium 1.5 L Total Bilirubin 0.6 AST 44 H ALT 36 Alkaline Phosphatase 89 Troponin I < 0.0120 NT-Pro-B Natriuret Pep 74.8 Total Protein 7.3 Albumin 4.0 Globulin 3.3 Albumin/Globulin Ratio 1.2 Influenza Typ A,B (EIA) Pos for influenza a H Assessment & Plan - Assessment and Plan (Free Text) Assessment: 67 yo female with history of HTN and recent diagnosed right breast cancer came in because of bilateral leg swelling associated with SOB after a short distance walk and waking up at night with difficulty of breathing. Concerned that she might be having another DVT. 1. Flu start Tamiflu 2. Right Breast Cancer elevated Ddimer maybe secondary to cancer Oncology consult with Dr Johnson 3. R/O Pulmonary Embolism start therapeutic Lovenox 90mg SC q 12hrs VQ scan in am (patient allergic to Iodine) 4. R/O CHF ECHO
[2017-11-08] MEDS ORDERED: Albuterol 0.083% Inhal Sol (2.5 mg/3 mL) UD IH PRN (20:27)
[2017-11-08] MEDS ORDERED: Enoxaparin 80 mg Syringe SC SCH (21:00)
[2017-11-09] MEDS ORDERED: Potassium Chloride 20 mEq ER Tab PO ONE (00:42)
[2017-11-09 06:54] LABS: BASO % 0.4 % (0.0-2.0); EOS % 0.2 % (0.0-4.0); HEMOGLOBIN 12.9 g/dL (12.0-16.0); LYMPH % 17.6 % (20.0-40.0); MEAN CELL VOLUME 109.9 fl (81.0-99.0); MEAN CORPUSCULAR HEMOGLOBIN 38.3 pg (27.0-31.0); MEAN CORPUSCULAR HGB CONC 34.9 g/dL (33.0-37.0); MEAN PLATELET VOLUME 8.2 fl (7.2-11.7); MONO # 0.5 K/uL (0.0-0.8); MONO % 9.2 % (0.0-10.0); NEUT # 4.2 K/uL (1.8-7.0); NEUT % 72.6 % (50.0-75.0); NRBC % 0.2 % (0.0-0.0); RBC 3.35 Mil/uL (3.80-5.20); RED CELL DISTRIBUTION WIDTH 13.6 % (11.5-14.5); WHITE BLOOD COUNT 5.7 K/uL (4.8-10.8)
[2017-11-09 07:18] LABS: BLOOD UREA NITROGEN 7 mg/dl (7-17); CALCIUM 9.1 mg/dL (8.4-10.2); GFR AFRICAN-AMERICAN > 60; GFR NON-AFRICAN AMERICAN > 60
[2017-11-09] MEDS ORDERED: Patient's Own Med (Enalapril/Hydrochlorothiazide [Enalapril-Hctz 10-25 Mg Tablet] 1 TAB) PO SCH (09:00)
--- NOTE | 2017-11-09 10:27 | CARD ---
APPROVED REPORT EKG Measurement Heart [id number] <Conclusion> Sinus rhythm with 1st degree AV block Otherwise normal ECG
[2017-11-09] MEDS: Enoxaparin 100 mg Syringe SC SCH ×2 (11:51→21:42)
[2017-11-09] MEDS: Pantoprazole 40 mg EC Tab PO SCH (11:54)
--- NOTE | 2017-11-09 16:39 | CP.PCM.PN ---
Subjective - Date & Time of Evaluation Date of Evaluation: 11/09/17 Time of Evaluation: 15:20 - Subjective Subjective: Patient seen and examined. Complained of soreness on right breast. Objective - Vital Signs/Intake and Output Vital Signs (last 24 hours): Temp Pulse Resp BP Pulse Ox 98.7 F 83 18 135/88 97 11/09/17 16:13 11/09/17 16:13 11/09/17 16:13 11/09/17 16:13 11/09/17 16:33 - Medications Medications: Current Medications Acetaminophen (Tylenol 325mg Tab) 650 mg PO Q6 PRN PRN Reason: Pain, Mild (1-3) Last Admin: 11/09/17 16:18 Dose: 650 mg Albuterol Sulfate (Albuterol 0.083% Inhal [place] (2.5 Mg/3 Ml) Ud) 2.5 mg IH Q4H PRN PRN Reason: Shortness of Breath Amlodipine Besylate (Norvasc) 5 mg PO DAILY [facility] Last Admin: 11/09/17 11:49 Dose: 5 mg Docusate Sodium (Colace) 100 mg PO BID PRN PRN Reason: Constipation Enoxaparin Sodium (Lovenox) 90 mg SC Q12 ANA PRN Reason: Protocol Last Admin: 11/09/17 11:51 Dose: 90 mg Gabapentin (Neurontin) 100 mg PO TID [facility] Last Admin: 11/09/17 13:39 Dose: Not Given Hydrochlorothiazide (Hydrodiuril) 25 mg PO DAILY [facility] Last Admin: 11/09/17 11:48 Dose: 25 mg Oseltamivir Phosphate (Tamiflu Cap) 75 mg PO BID ANA PRN Reason: Protocol Last Admin: 11/09/17 16:19 Dose: 75 mg Pantoprazole Sodium (Protonix Ec Tab) 40 mg PO DAILY [facility] Last Admin: 11/09/17 11:54 Dose: 40 mg - Labs Labs: 11/09/17 06:11 11/09/17 06:11 PT 10.1 Seconds (9.8-13.1) 11/08/17 17:13 INR 0.9 (0.9-1.2) 11/08/17 17:13 APTT 28.0 Seconds (25.6-37.1) 11/08/17 17:13 - Constitutional Appears: No Acute Distress - Head Exam Head Exam: ATRAUMATIC - Eye Exam Eye Exam: absent: Scleral icterus - ENT Exam ENT Exam: Mucous Membranes Moist - Neck Exam Neck Exam: absent: Meningismus - Respiratory Exam Respiratory Exam: absent: Rhonchi, Wheezes, Respiratory Distress - Cardiovascular Exam Cardiovascular Exam: REGULAR RHYTHM, +S1, +S2 - GI/Abdominal Exam GI & Abdominal Exam: Soft. absent: Tenderness - Rectal Exam Rectal Exam: Deferred - Extremities Exam Extremities Exam: Pedal Edema (non-pitting edema of both legs). 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 Concerned that she might be having DVT. Had DVT of the right femoral vein 20 yrs ago. 1. Flu continue Tamiflu 2. Right Breast Cancer poorly differentiated invasive intraductal carcinoma with metastasis on breast biopsy, 11/02/2017 Oncologist, Dr Whittington, managing as out patient elevated Ddimer maybe secondary to cancer activating hemostasis and fibrinolysis which have been reported 3. R/O Pulmonary Embolism continue therapeutic Lovenox 90mg SC q 12hrs until ruled out on VQ scan on Saturday unable to do CT angio because patient is allergic to iodine 4. R/O CHF experiancing symptoms of CHF: dyspnea on mild exertion, PND and bilateral leg sweeling official reading of ECHO still pending cardiology consult with Dr Engle (will see patient tomorrow)
[2017-11-10 05:02] VITALS: RESP 16
[2017-11-10] MEDS: Enoxaparin 100 mg Syringe SC SCH (10:01)
[2017-11-10] MEDS: Pantoprazole 40 mg EC Tab PO SCH (10:03)
[2017-11-10 12:20] VITALS: BP 114/75; PULSE 75; TEMP 98.2; O2SAT 98
--- NOTE | 2017-11-10 13:12 | CP.PCM.CON ---
History of Present Illness - History of Present Illness History of Present Illness: This 67-year -old female came into the emergency room complaining of pedal edema over the last 4-5 days. She was recently diagnosed as having breast malignancy and initial workup has just started. She had been a smoker for approximately 40 years and finally quit a week back. She gives history of hypertension and has taken her medications regularly. She denies prior history of chest pain or myocardial infarction or symptoms of congestive cardiac failure. She reports that her ambulation is mostly hampered by osteoarthritic pains in the knees but can walk 6-7 blocks at her own pace without getting chest pain or shortness of breath. She denies any history of orthopnea. She is not a diabetic. She has a family history of hypertension in that her father was a hypertensive. Physical examination shows a middle aged pleasant -[place] female who is sitting up in bed alert awake and coherent. She is free of any dyspnea and breathes at 14-16 breast per minute and can carry on a conversation without any difficulty. Her heart rate was 74 bpm regular and her blood pressure was 122/74 mmHg. Her jugular venous pressure was not elevated and there was no edema over her lower extremities. The pedal pulses were well felt. There were no carotid bruits. Her apex was not palpable the first and second heart sounds are normal. There was no gallop and there were no murmurs. There were no rales. Abdomen was soft liver and spleen were not palpable. Her electro-cardiogram showed sinus rhythm within normal electro-Cardiologic pattern. An earlier electrocardiogram of November 2016 also appeared normal without any Q waves. Her echocardiogram done yesterday shows preserved left ventricular systolic function with no significant valve abnormalities. Her lab data shows a normal proBNP and her chest x-ray does not show any evidence of congestive cardiac failure. Ultrasound of the lower extremities has failed to reveal any evidence of deep vein thrombosis. Impression: The patient does not have any evidence of congestive cardiac failure. The patient is a hypertensive with a long history of chronic cigarette use. Recently diagnosed breast malignancy with workup in progress. The patient may be allowed to return home and continue her management as an outpatient. Past Patient History - Infectious Disease Hx of Infectious Diseases: None - Tetanus Immunizations Tetanus Immunization: Unknown - Past Medical History & Family History Past Medical History?: Yes - Past Social History Smoking Status: Former Smoker - CARDIAC Hx Hypertension: Yes - PULMONARY Hx Respiratory Disorders: No - NEUROLOGICAL Hx Neurological Disorder: No - HEENT Hx HEENT Problems: No - RENAL Hx Chronic Kidney Disease: No - ENDOCRINE/METABOLIC Hx Endocrine Disorders: No - HEMATOLOGICAL/ONCOLOGICAL Hx Human Immunodeficiency Virus (HIV): No - INTEGUMENTARY Hx Dermatological Problems: No - MUSCULOSKELETAL/RHEUMATOLOGICAL Hx Arthritis: Yes (knees) - GASTROINTESTINAL Hx Gastrointestinal Disorders: Yes Hx Bowel Surgery: Yes (partial bowel resection) - GENITOURINARY/GYNECOLOGICAL Hx Genitourinary Disorders: No - PSYCHIATRIC Hx Psychophysiologic Disorder: No Hx Substance Use: No - SURGICAL HISTORY Hx Appendectomy: Yes Hx Tonsillectomy: Yes - ANESTHESIA Hx Anesthesia: Yes Hx Anesthesia Reactions: No Hx Malignant Hyperthermia: No Meds Allergies/Adverse Reactions: Allergies Allergy/AdvReac Type Severity Reaction Status Date / Time cyclobenzaprine HCl Allergy ANGIOEDEMA Verified 12/21/16 19:47 [From Flexeril] enalapril Allergy RASH Verified 11/08/17 16:14 iodine Allergy SWELLING Verified 10/30/17 10:43 lisinopril Allergy SWELLING Verified 10/30/17 11:21 shellfish derived AdvReac Severe ITCHING Verified 12/21/16 10:42 metronidazole [From Flagyl] AdvReac ANAPHYLAXIS Verified 12/21/16 10:42 food AdvReac Mild ITCHING Uncoded 03/24/16 10:28 - Medications Medications: Current Medications Acetaminophen (Tylenol 325mg Tab) 650 mg PO Q6 PRN PRN Reason: Pain, Mild (1-3) Last Admin: 11/10/17 10:06 Dose: 650 mg Albuterol Sulfate (Albuterol 0.083% Inhal [place] (2.5 Mg/3 Ml) Ud) 2.5 mg IH Q4H PRN PRN Reason: Shortness of Breath Amlodipine Besylate (Norvasc) 5 mg PO DAILY [facility] Last Admin: 11/10/17 10:02 Dose: 5 mg Docusate Sodium (Colace) 100 mg PO BID PRN PRN Reason: Constipation Enoxaparin Sodium (Lovenox) 90 mg SC Q12 ANA PRN Reason: Protocol Last Admin: 11/10/17 10:01 Dose: 90 mg Gabapentin (Neurontin) 100 mg PO TID [facility] Last Admin: 11/10/17 10:03 Dose: Not Given Hydrochlorothiazide (Hydrodiuril) 25 mg PO DAILY [facility] Last Admin: 02/18/18 10:02 Dose: 25 mg Oseltamivir Phosphate (Tamiflu Cap) 75 mg PO BID [facility] PRN Reason: Protocol Last Admin: 11/10/17 10:02 Dose: 75 mg Pantoprazole Sodium (Protonix Ec Tab) 40 mg PO DAILY [facility] Last Admin: 11/10/17 10:03 Dose: 40 mg Results - Vital Signs Recent Vital Signs: Last Vital Signs Temp 98.2 F 11/10/17 12:19 Pulse 75 11/10/17 12:19 Resp 16 11/10/17 12:19 BP 114/75 11/10/17 12:19 Pulse Ox 98 11/10/17 12:19 - Labs Result Diagrams: 11/09/17 06:11 11/09/17 06:11
--- NOTE | 2017-11-10 14:10 | CP.PCM.DIS ---
Provider - Provider Date of Admission: 11/08/17 19:07 Attending physician: Francisco Landrum MD Primary care physician: Kendy Taylor MD Consults: Dr Engle Time Spent in preparation of Discharge (in minutes): 25 Diagnosis - Discharge Diagnosis (1) Leg swelling Status: Acute Comment: leg swelling improved probably because of HCTZ and elevating it (2) Hypertension Status: Chronic Priority: Medium Comment: BP stable. continue Amlodipine and HCTZ (3) Influenza Status: Acute Comment: continue Tamiflu for another 3 days (4) Breast cancer Status: Acute Comment: follow up with private oncologist Hospital Course - Lab Results Lab Results: Micro Results 11/08/17 12:20 Blood-Venous Blood Culture - Preliminary NO GROWTH AFTER 24 HOURS 11/08/17 17:00 Blood-Venous Blood Culture - Preliminary NO GROWTH AFTER 24 HOURS Most Recent Lab Values WBC 5.7 K/uL (4.8-10.8) 11/09/17 06:11 RBC 3.35 Mil/uL (3.80-5.20) L 11/09/17 06:11 Hgb 12.9 g/dL (12.0-16.0) 11/09/17 06:11 Hct 36.8 % (34.0-47.0) 11/09/17 06:11 MCV 109.9 fl (81.0-99.0) H 11/09/17 06:11 MCH 38.3 pg (27.0-31.0) H 11/09/17 06:11 MCHC 34.9 g/dL (33.0-37.0) 11/09/17 06:11 RDW 13.6 % (11.5-14.5) 11/09/17 06:11 Plt Count 186 K/uL (130-400) 11/09/17 06:11 MPV 8.2 fl (7.2-11.7) 11/09/17 06:11 Neut % (Auto) 72.6 % (50.0-75.0) 11/09/17 06:11 Lymph % (Auto) 17.6 % (20.0-40.0) L 11/09/17 06:11 Crosby % (Auto) 9.2 % (0.0-10.0) 11/09/17 06:11 Eos % (Auto) 0.2 % (0.0-4.0) 11/09/17 06:11 Baso % (Auto) 0.4 % (0.0-2.0) 11/09/17 06:11 Neut # (Auto) 4.2 K/uL (1.8-7.0) 11/09/17 06:11 Lymph # (Auto) 1.0 K/uL (1.0-4.3) 11/09/17 06:11 Crosby # (Auto) 0.5 K/uL (0.0-0.8) 11/09/17 06:11 Eos # (Auto) 0.0 K/uL (0.0-0.7) 11/09/17 06:11 Baso # (Auto) 0.0 K/uL (0.0-0.2) 11/09/17 06:11 PT 10.1 Seconds (9.8-13.1) 11/08/17 17:13 INR 0.9 (0.9-1.2) 11/08/17 17:13 APTT 28.0 Seconds (25.6-37.1) 11/08/17 17:13 D-Dimer, Quantitative 243 ng/mlDDU (0-230) H 11/08/17 17:57 Sodium 139 mmol/l (132-148) 11/09/17 06:11 Potassium 3.7 MMOL/L (3.6-5.0) 11/09/17 06:11 Chloride 99 mmol/L (98-107) 11/09/17 06:11 Carbon Dioxide 34 mmol/L (22-30) H 11/09/17 06:11 Anion Gap 10 (10-20) 11/09/17 06:11 BUN 7 mg/dl (7-17) 11/09/17 06:11 Creatinine 0.8 mg/dl (0.7-1.2) 11/09/17 06:11 Est GFR ( Amer) > 60 11/09/17 06:11 Est GFR (Non-Af Amer) > 60 11/09/17 06:11 Random Glucose 87 mg/dL (65-105) 11/09/17 06:11 Calcium 9.1 mg/dL (8.4-10.2) 02/17/18 06:11 Phosphorus 2.9 mg/dl (2.5-4.5) 11/08/17 17:57 Magnesium 1.5 MG/DL (1.6-2.3) L 11/08/17 17:57 Total Bilirubin 0.6 mg/dl (0.2-1.3) 11/08/17 17:57 AST 44 U/L (14-36) H 11/08/17 17:57 ALT 36 U/L (9-52) 11/08/17 17:57 Alkaline Phosphatase 89 U/L (38-126) 11/08/17 17:57 Troponin I < 0.0120 ng/mL (0.00-0.120) 11/08/17 17:57 NT-Pro-B Natriuret Pep 74.8 pg/ml (0-900) 11/08/17 17:57 Total Protein 7.3 G/DL (6.3-8.2) 11/08/17 17:57 Albumin 4.0 g/dL (3.5-5.0) 11/08/17 17:57 Globulin 3.3 gm/dL (2.2-3.9) 11/08/17 17:57 Albumin/Globulin Ratio 1.2 (1.0-2.1) 11/08/17 17:57 TSH 3rd Generation 2.46 mIU/ML (0.46-4.68) 11/09/17 06:11 Influenza Typ A,B (EIA) Pos for influenza a (NEGATIVE) H 11/08/17 17:13 - Hospital Course Hospital Course: 67 yo female with history of HTN and recent diagnosis of 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 Concerned that she might be having DVT she sought consultation in the ER and was found to have elevated Ddimer. Test for Flu was also positive. Cardiology consult was called. Her legs swelling were gone and ECHO showed that she did not have CHF. Patient was discharged in stable condition. Discharge Exam - Head Exam Head Exam: ATRAUMATIC - Eye Exam Eye Exam: Normal appearance. absent: Scleral icterus - ENT Exam ENT Exam: Mucous Membranes Moist - Respiratory Exam Respiratory Exam: absent: Rhonchi, Wheezes, Respiratory Distress - Cardiovascular Exam Cardiovascular Exam: REGULAR RHYTHM, +S1, +S2 - GI/Abdominal Exam GI & Abdominal Exam: Soft. absent: Tenderness - Rectal Exam Rectal Exam: Deferred - Extremities Exam Extremities exam: normal inspection (swelling has subsided) - Back Exam Back exam: absent: tenderness - Neurological Exam Neurological exam: Alert, Oriented x3 - Psychiatric Exam Psychiatric exam: Normal Affect - Skin Skin Exam: Dry, Intact Discharge Plan - Discharge Medications Prescriptions: Oseltamivir Phosphate [Tamiflu] 75 mg PO BID #6 capsule - Follow Up Plan Condition: GUARDED Disposition: HOME/ ROUTINE Referrals: Kendy Taylor MD [Primary Care Provider] -
--- NOTE | 2017-11-11 08:58 | CARD ---
APPROVED REPORT EXAM: Two-dimensional and M-mode echocardiogram with Doppler and color Doppler. Other Information Quality : FairRhythm : INDICATION Congestive Heart Failure RISK FACTORS Hypertension 2D DIMENSIONS IVSd0.98 (0.7-1.1cm)LVDd4.36 (3.9-5.9cm) PWd1.37 (0.7-1.1cm)LVDs3.26 (2.5-4.0cm) FS (%) 25.2 % M-Mode DIMENSIONS Left Atrium (MM)4.03 (2.5-4.0cm)IVSd0.53 (0.7-1.1cm) Aortic Root2.40 (2.2-3.7cm)LVDd5.03 (4.0-5.6cm) Aortic Cusp Exc.2.03 (1.5-2.0cm)PWd1.37 (0.7-1.1cm) FS (%) 33 %LVDs3.37 (2.0-3.8cm) Mitral Valve MV E Dqrzqnlg68.9cm/sMV E Peak Gr.31mmHgMV DECEL [id number] MV A Nqprhyhp08.0cm/sMV NNL33dxD/A ratio1.0 MVA (PHT)3.70cm2 TDI Lateral E' Peak V11.57cm/sMedial E' Peak V9.53cm/sE/Lateral E'6.8 E/Medial E'8.3 Pulmonary Valve PV Peak Ggguqrvd162.0cm/s Tricuspid Valve TR Peak Cmlfwqfk146nk/sRAP EEHABIPQ89pwXcIQ Peak Gr.30mmHg [id number] LEFT VENTRICLE The left ventricle is normal in size. There is normal left ventricular wall thickness. The left ventricular function is normal. The left ventricular ejection fraction is - 65%. There is normal LV segmental wall motion. Transmitral Doppler flow pattern is Grade I-abnormal relaxation pattern. No left ventricle thrombus noted on this study. There is no ventricular septal defect visualized. There is no left ventricular aneurysm. There is no mass noted in the left ventricle. RIGHT VENTRICLE The right ventricle is normal size. There is normal right ventricular wall thickness. The right ventricular systolic function is normal. ATRIA The left atrium size is normal on the 2D study. The right atrium size is normal. The interatrial septum is intact with no evidence for an atrial septal defect. AORTIC VALVE The aortic valve is normal in structure. No aortic regurgitation is present. There is no aortic valvular stenosis. MITRAL VALVE The mitral valve is normal in structure. There is no evidence of mitral valve prolapse. There is no mitral valve stenosis. There is no mitral valve regurgitation noted on color doppler studies. TRICUSPID VALVE The tricuspid valve is normal in structure. There is no tricuspid valve regurgitation noted on color doppler studies.. There is no tricuspid valve prolapse or vegetation. There is no tricuspid valve stenosis. PULMONIC VALVE The pulmonic valve is not well visualized. There is no pulmonic valvular regurgitation. GREAT VESSELS The aortic root is normal in size. The IVC was not visualized. PERICARDIAL EFFUSION The pericardium appears normal. There is no pleural effusion. <Conclusion> The left ventricle is normal in size and wall thickness. The left ventricular function is normal. The left ventricular ejection fraction is - 65%. The left atrium, right ventricle and right atrium are normal in size. The mitral, aortic and tricuspid valves are normal.
--- NOTE | 2017-11-11 09:09 | PQF GENQUE ---
Dr. Landrum, Please provide specificity regarding pulmonary embolism: VERSUS PE ruled out etc. 1. Acuity: Acute Other (please specify) Chronic Clinically unable to determine Acute on chronic Unknown History of/healed With Prophylaxis Without Prophylaxis 2. Cause: if known Complication of surgical and/or medical care Due to trauma Postoperative Other (please specify) Clinically unable to determine Unknown 3. Type: Air embolism Septic embolism Amniotic fluid embolism Other (please specify) Fat embolism Clinically unable to determine Saddle embolism Unknown 4. Associated condition: With acute cor pulmonale Without acute cor pulmonale Other (please specify) Clinically unable to determine Unknown H and P includes: R/O Pulmonary Embolism start therapeutic Lovenox 90mg SC q 12hrs ;VQ scan in am (patient allergic to Iodine) 11/09 Attending progress note includes: R/O Pulmonary Embolism continue therapeutic Lovenox 90mg SC q 12hrs until ruled out on VQ scan on Saturday unable to do CT angio because patient is allergic to iodine D/C Summary: Discharge Diagnosis includes: (1) Leg swelling Status: Acute Comment: leg swelling improved probably because of HCTZ and elevating it: came in because of bilateral leg swelling associated with dyspnea on exertion and waking up at night with difficulty of breathing. Concerned that she might be having DVT she sought consultation in the ER and was found to have elevated Ddimer. Test for Flu was also positive. Cardiology consult was called. Her legs swelling were gone and ECHO showed that she did not have CHF. This form is a permanent part of the medical record Clarification of your documentation is requested to better reflect the severity of illness and intensity of treatment of your patient. Indicators present [] Specify: [] [] Specify: [] [] Specify: [] [] Specify: [] Location in the medical record that reflects the above clinical findings: [] Treatment Provided: [] PHYSICIAN'S RESPONSE Based on your medical judgment of the clinical indicators outlined above please clarify the following: [x] Practitioner response - The patient did not have Pulmonary Embolism. It was only suspected in the ER because of the history of DVT 20 yrs ago and history of breast cancer as per patient history. Venous doppler was negative for clot in the legs and the ECHO was essentially normal. Her O2 sat remained above 90+ and did not complained of SOB through out her stay in the hospital. We didn't have to wait for VQ to rule out as clinically she didn't have one. The mildly elevated Ddimer was secondary to her newly diagnosed breast cancer. [] If unable to determine, please check the box, sign and date. Present On Admission (POA) Indicator: [] Present at the time of admission [x] Not present at the time of admission [] Clinically Undetermined In responding to this query, please exercise your independent professional judgment. The fact that a question is asked does not imply that any particular answer is desired or expected. Thank you for your clarification on this documentation. If you have any questions please call. * Thank you, Bettie Macias RN ext. #[phone] MTDD
== END 2017-11-10 15:38 | disposition home or self-care (01) | DRG 194 ==
LOC: H.ER 15:33 → H.ERHOLD 19:07 → H.TEL 23:36
DX: J10.1 Influenza due to other identified influenza virus with other respiratory manifestations (principal); J44.1 Chronic obstructive pulmonary disease with (acute) exacerbation; C77.9 Secondary and unspecified malignant neoplasm of lymph node, unspecified; C50.911 Malignant neoplasm of unspecified site of right female breast; M17.0 Bilateral primary osteoarthritis of knee; Z86.718 Personal history of other venous thrombosis and embolism; Z87.891 Personal history of nicotine dependence; Z90.49 Acquired absence of other specified parts of digestive tract; Z91.041 Radiographic dye allergy status; Z79.899 Other long term (current) drug therapy; I10 Essential (primary) hypertension

== ENCOUNTER 2017-12-10 20:05 | Observation (INO) | payer MEDICARE ==
[2017-12-10 20:07] VITALS: BMI 30.7
--- NOTE | 2017-12-10 20:52 | ED PDOC ---
HPI: Chest Pain Time Seen by Provider: 12/10/17 20:28 Chief Complaint (Nursing): Chest Pain Chief Complaint (Provider): chest pain History Per: Patient History/Exam Limitations: no limitations Onset/Duration Of Symptoms: Hrs (1) Current Symptoms Are (Timing): Better Associated Symptoms: Dyspnea Additional Complaint(s): 67 y/o female history of hypertension, breast CA, DVT presents with chest pain x 1 hour. Patient states yesterday she received her first chemotherapy infusion , and tonight she received her second dose of Nulesta at 17:45, and right after she developed chest "Tightness" with associated shortness of breath. Patient states symptoms lasted approximately one hour before improving upon arrival to ED. Denies fever, nausea/vomiting, palpitations, abdominal pain, changes in bowel movements, urinary symptoms. - Risk Factors PE Risk Factors: Pos: Active Cancer, Previous DVT Past Medical History Reviewed: Historical Data, Nursing Documentation, Vital Signs Vital Signs: Last Vital Signs Temp 97.8 F 12/10/17 20:09 Pulse 77 12/10/17 22:47 Resp 20 12/10/17 22:47 BP 126/77 12/10/17 20:09 Pulse Ox 96 12/10/17 22:56 - Medical History PMH: Arthritis (knees), Diverticulitis, Deep Vein Thrombosis, HTN, Malignancy, Peripheral Edema Denies: Chronic Kidney Disease - Surgical History Surgical History: Appendectomy, Tonsillectomy - Family History Family History: States: Hypertension - Immunization History Hx Tetanus Toxoid Vaccination: No Hx Influenza Vaccination: No Hx Pneumococcal Vaccination: No - Home Medications Home Medications: Ambulatory Orders Medication Instructions Recorded Hydrochlorothiazide [Microzide] 25 mg PO DAILY 11/08/17 amLODIPine [Norvasc] 5 mg PO DAILY 11/08/17 Cholecalciferol [Vitamin D] 1,000 iu PO DAILY 11/15/17 - Allergies Allergies/Adverse Reactions: Allergies Allergy/AdvReac Type Severity Reaction Status Date / Time enalapril Allergy RASH Verified 11/08/17 16:14 iodine Allergy SWELLING Verified 10/30/17 10:43 lisinopril Allergy SWELLING Verified 10/30/17 11:21 shellfish derived AdvReac Severe ITCHING Verified 12/21/16 10:42 metronidazole [From Flagyl] AdvReac ANAPHYLAXIS Verified 12/21/16 10:42 Review of Systems ROS Statement: Except As Marked, All Systems Reviewed And Found Negative Cardiovascular: Positive for: Chest Pain Physical Exam - Reviewed Nursing Documentation Reviewed: Yes Vital Signs Reviewed: Yes - Physical Exam Appears: Positive for: Well, Non-toxic, No Acute Distress Head Exam: Positive for: ATRAUMATIC, NORMAL INSPECTION, NORMOCEPHALIC Skin: Positive for: Normal Color Eye Exam: Positive for: Normal appearance ENT: Positive for: Normal ENT Inspection Cardiovascular/Chest: Positive for: Regular Rate, Rhythm, Other (left chest port ) Respiratory: Positive for: Normal Breath Sounds Gastrointestinal/Abdominal: Positive for: Normal Exam Back: Positive for: Normal Inspection Extremity: Positive for: Normal ROM Neurologic/Psych: Positive for: Alert, Oriented - Laboratory Results Result Diagrams: 12/10/17 22:00 12/10/17 22:00 - ECG ECG: Positive for: Viewed By Me (reviewed by ED attending) ECG Rhythm: Positive for: Sinus Rhythm, Premature Ventricular Contraction O2 Sat by Pulse Oximetry: 96 - Radiology X-Ray: Viewed By Me X-Ray Interpretation: No Acute Disease - Progress ED Course And Treament: labs, ekg, u/s lower extremity, chest xray EXAM: US Duplex Bilateral Lower Extremity Veins EXAM DATE/TIME: 12/10/2017 8:46 PM CLINICAL HISTORY: 67 years old, female; Signs and symptoms; Other: Chest pain; Additional info: R/ out dvt TECHNIQUE: Real-time ultrasound scan of the veins of the bilateral lower extremities with color Doppler flow, spectral waveform analysis and compression. COMPARISON: There are no prior studies for comparison. FINDINGS: Right deep veins:Common femoral, superficial femoral, popliteal and posterior tibial veins were evaluated. Left deep veins:Common femoral, superficial femoral, popliteal and posterior tibial veins were evaluated. All veins examined are compressible. There are no intraluminal filling defects. There is expected blood flow on Doppler imaging. There is change in waveform with augmentation. Impression: No deep venous thrombosis in the visualized vascular segments of the lower extremities ASA 81mg PO, Potassium 40mEQ PO ordered Case discussed with Dr. Lopez, Hospitalist on-call, for placement in observation telemetry Disposition - Clinical Impression Clinical Impression: Chest pain, Breast cancer - Disposition Disposition Time: 22:54 Condition: FAIR
[2017-12-10 22:18] LABS: BASO # 0.1 K/uL (0.0-0.2); BASO % 0.4 % (0.0-2.0); HEMOGLOBIN 11.5 g/dL (12.0-16.0); LYMPH # 0.8 K/uL (1.0-4.3); LYMPH % 2.9 % (20.0-40.0); MEAN CELL VOLUME 106.9 fl (81.0-99.0); MEAN CORPUSCULAR HEMOGLOBIN 36.4 pg (27.0-31.0); MEAN CORPUSCULAR HGB CONC 34.1 g/dL (33.0-37.0); MEAN PLATELET VOLUME 9.1 fl (7.2-11.7); MONO # 1.4 K/uL (0.0-0.8); MONO % 4.9 % (0.0-10.0); NEUT # 25.9 K/uL (1.8-7.0); NEUT % 91.8 % (50.0-75.0); PLATELET COUNT 251 K/uL (130-400); RBC 3.17 Mil/uL (3.80-5.20); WHITE BLOOD COUNT 28.2 K/uL (4.8-10.8)
[2017-12-10 22:23] LABS: ALB/GLOB RATIO 1.2 (1.0-2.1); ALBUMIN 3.7 g/dL (3.5-5.0); ALT/SGPT 42 U/L (9-52); AST/SGOT 34 U/L (14-36); BLOOD UREA NITROGEN 22 mg/dl (7-17); CALCIUM 9.4 mg/dL (8.4-10.2); GFR AFRICAN-AMERICAN > 60; GFR NON-AFRICAN AMERICAN > 60; PARTIAL THROMBOPLASTIN TIME 28.9 Seconds (25.6-37.1); PROTHROMBIN TIME 10.7 Seconds (9.8-13.1)
--- NOTE | 2017-12-10 22:42 | US ---
EXAM: US Duplex Bilateral Lower Extremity Veins EXAM DATE/TIME: 12/10/2017 8:46 PM CLINICAL HISTORY: 67 years old, female; Signs and symptoms; Other: Chest pain; Additional info: R/out dvt TECHNIQUE: Real-time ultrasound scan of the veins of the bilateral lower extremities with color Doppler flow, spectral waveform analysis and compression. COMPARISON: There are no prior studies for comparison. FINDINGS: Right deep veins:Common femoral, superficial femoral, popliteal and posterior tibial veins were evaluated. Left deep veins:Common femoral, superficial femoral, popliteal and posterior tibial veins were evaluated. All veins examined are compressible. There are no intraluminal filling defects. There is expected blood flow on Doppler imaging. There is change in waveform with augmentation. Impression: No deep venous thrombosis in the visualized vascular segments of the lower extremities
[2017-12-10 22:50] LABS: ANISOCYTOSIS SLIGHT; BANDS 2 % (0-2); LYMPHOCYTE 7 % (20-50); MONOCYTE 5 % (0-10); NEUTROPHIL 86 % (42-75); PLATELET ESTIMATE NORMAL (NORMAL); TOTAL CELLS COUNTED 100
[2017-12-10 22:51] LABS: OVALOCYTES SLIGHT
[2017-12-10] MEDS ORDERED: Potassium Chloride 20 mEq ER Tab PO ONE ×2 (22:55→22:59)
--- NOTE | 2017-12-10 23:33 | CP.PCM.HP ---
History of Present Illness - History of Present Illness History of Present Illness: CC: CP HPI: This is a 67 y/o female with MHx significant for HTN, prior DVT, and recently diagnosed breast CA for which she is in chemoRx. She comes in with CP x 1 hour. Patient received first dose of chemoRx yesterday as well as a 2nd dose of Nulesta today just around 6 PM. She developed some tightness in her chest just around that time. Pain did not radiate anywhere. There was no SOB, f/ c/cough/n/v/d. No palpitations/diaphoresis. Of note, she was here about a month ago, and at that time, also had a cardiac w/ u. Echo at the time showed wnl chambers/valves, and EF of 65%. PCP: Claudia ROS: 14 systems reviewed, negative other than HPI MHx: HTN, DVT in past, breast cancer SHx: Port placement Allergies: Iodinated contrast, ACEi, shellfish, flagyl Medications: Per med rec Family Hx: No relevant findings Social Hx: Lives with family, no significant EtOH or tobacco Present on Admission - Present on Admission Any Indicators Present on Admission: No Past Patient History - Infectious Disease Hx of Infectious Diseases: None - Tetanus Immunizations Tetanus Immunization: Unknown - Past Medical History & Family History Past Medical History?: Yes - Past Social History Smoking Status: Former Smoker - CARDIAC Hx Hypertension: Yes Hx Peripheral Edema: Yes - PULMONARY Hx Respiratory Disorders: No - NEUROLOGICAL Hx Neurological Disorder: No - HEENT Hx HEENT Problems: No - RENAL Hx Chronic Kidney Disease: No - ENDOCRINE/METABOLIC Hx Endocrine Disorders: No - INTEGUMENTARY Hx Dermatological Problems: No - MUSCULOSKELETAL/RHEUMATOLOGICAL Hx Arthritis: Yes (knees) - GASTROINTESTINAL Hx Diverticulitis: Yes - GENITOURINARY/GYNECOLOGICAL Hx Genitourinary Disorders: No - PSYCHIATRIC Hx Psychophysiologic Disorder: No Hx Substance Use: No - SURGICAL HISTORY Hx Appendectomy: Yes Hx Tonsillectomy: Yes - ANESTHESIA Hx Anesthesia: Yes Hx Anesthesia Reactions: No Hx Malignant Hyperthermia: No Meds Allergies/Adverse Reactions: Allergies Allergy/AdvReac Type Severity Reaction Status Date / Time enalapril Allergy RASH Verified 11/08/17 16:14 iodine Allergy SWELLING Verified 10/30/17 10:43 lisinopril Allergy SWELLING Verified 10/30/17 11:21 shellfish derived AdvReac Severe ITCHING Verified 12/21/16 10:42 metronidazole [From Flagyl] AdvReac ANAPHYLAXIS Verified 12/21/16 10:42 Physical Exam - Constitutional Appears: No Acute Distress - Head Exam Head Exam: ATRAUMATIC, NORMOCEPHALIC - Eye Exam Eye Exam: EOMI, PERRL - ENT Exam ENT Exam: Mucous Membranes Moist - Neck Exam Neck exam: Positive for: Full Rom - Respiratory Exam Respiratory Exam: Clear to Auscultation Bilateral, NORMAL BREATHING PATTERN - Cardiovascular Exam Cardiovascular Exam: REGULAR RHYTHM, +S1, +S2 - GI/Abdominal Exam GI & Abdominal Exam: Normal Bowel Sounds, Soft - Extremities Exam Extremities exam: Positive for: full ROM, normal inspection - Neurological Exam Neurological exam: Alert, CN II-XII Intact, Oriented x3 - Psychiatric Exam Psychiatric exam: Normal Affect, Normal Mood - Skin Skin Exam: Dry, Warm Results - Vital Signs Recent Vital Signs: Last Vital Signs Temp 97.8 F 12/10/17 20:09 Pulse 77 12/10/17 22:47 Resp 20 12/10/17 22:47 BP 126/77 12/10/17 20:09 Pulse Ox 96 12/10/17 22:57 - Labs Result Diagrams: 12/10/17 22:00 12/10/17 22:00 Labs: Laboratory Results - last 24 hr 12/10/17 12/10/17 12/10/17 22:00 22:00 22:00 WBC 28.2 H D RBC 3.17 L Hgb 11.5 L Hct 33.9 L MCV 106.9 H D MCH 36.4 H MCHC 34.1 RDW 13.0 Plt Count 251 MPV 9.1 Neut % (Auto) 91.8 H Lymph % (Auto) 2.9 L Craven % (Auto) 4.9 Eos % (Auto) 0.0 Baso % (Auto) 0.4 Neut # (Auto) 25.9 H Lymph # (Auto) 0.8 L [place]ven # (Auto) 1.4 H Eos # (Auto) 0.0 Baso # (Auto) 0.1 Neutrophils % (Manual) 86 H Band Neutrophils % 2 Lymphocytes % (Manual) 7 L Monocytes % (Manual) 5 Platelet Estimate Normal Anisocytosis (manual) Slight Macrocytosis (manual) Slight Ovalocytes Slight PT 10.7 INR 1.0 APTT 28.9 Sodium 134 Potassium 3.1 L Chloride 94 L Carbon Dioxide 28 Anion Gap 15 BUN 22 H Creatinine 0.9 Est GFR ( Amer) > 60 Est GFR (Non-Af Amer) > 60 Random Glucose 123 H Calcium 9.4 Total Bilirubin 0.5 AST 34 ALT 42 Alkaline Phosphatase 85 Troponin I < 0.0120 Total Protein 6.9 Albumin 3.7 Globulin 3.2 Albumin/Globulin Ratio 1.2 - EKG Data EKG Interpreted by: Myself EKG shows normal: Sinus rhythm Rate: Normal - Imaging and Cardiology Chest x-ray Status: Image reviewed by me (port in place on Left) Venous US Status: Report reviewed by me (no DVT) Assessment & Plan (1) Chest pain Assessment and Plan: 67 y/o female with CP in setting of breast cancer; prior hx of DVT. 1) CP, r/o ACS, r/o DVT -Admit tele obs -serial trops -VQ scan in AM as patient is allergic to contrast -Patient received 1 dose of ASA in ER -Will not give empiric dose of therapeutic lovenox for now given no CP, normal O2 sat, and no tachycardia 2) HTN -- cont home medications 3) Hypo K -- received K in ER, will repeat BMP in AM 4) DVT PPx -- SQ lovenox for now Status: Acute (2) Hypokalemia Status: Acute (3) DVT prophylaxis Status: Acute
[2017-12-11 02:50] VITALS: RESP 18
[2017-12-11 05:49] LABS: HEMOGLOBIN 11.3 g/dL (12.0-16.0); MEAN CELL VOLUME 107.5 fl (81.0-99.0); MEAN CORPUSCULAR HGB CONC 33.4 g/dL (33.0-37.0); RBC 3.14 Mil/uL (3.80-5.20); RED CELL DISTRIBUTION WIDTH 13.3 % (11.5-14.5)
[2017-12-11 06:13] LABS: BLOOD UREA NITROGEN 18 mg/dl (7-17); CALCIUM 9.5 mg/dL (8.4-10.2); GFR AFRICAN-AMERICAN > 60; GFR NON-AFRICAN AMERICAN > 60
[2017-12-11 07:18] LABS: WHITE BLOOD COUNT 35.5 K/uL (4.8-10.8)
[2017-12-11] MEDS ORDERED: Potassium Chloride 20 mEq ER Tab PO ONE ×2 (07:52→15:14)
[2017-12-11] MEDS ORDERED: Influenza Vaccine 18yr & older 0.5 ML/45 MCG SYR IM ONE (08:10)
[2017-12-11] MEDS ORDERED: Enoxaparin 40 mg Syringe SC SCH (09:00)
--- NOTE | 2017-12-11 11:00 | CARD ---
APPROVED REPORT EKG Measurement Heart [id number] <Conclusion> Sinus rhythm with premature supraventricular complexes Prolonged QT Abnormal ECG
--- NOTE | 2017-12-11 11:17 | RAD ---
HISTORY: chest pain COMPARISON: Chest radiographs 11/08/2017. FINDINGS: Left MediPort catheter now identified placed from left pectoralis region to the plane of the left internal jugular vein terminating at the superior vena cava region. LUNGS: No active pulmonary disease. PLEURA: No significant pleural effusion identified, no pneumothorax apparent. CARDIOVASCULAR: Normal. OSSEOUS STRUCTURES: No significant abnormalities. VISUALIZED UPPER ABDOMEN: Normal. OTHER FINDINGS: None. IMPRESSION: No acute cardiopulmonary disease appreciable. Left-sided MediPort now identified in position as discussed above.
[2017-12-11] MEDS ORDERED: Albuterol-Ipratrop 3 mg / 0.5 (3 ml) UD INH SCH (14:00)
[2017-12-11 14:47] LABS: BLOOD UREA NITROGEN 15 mg/dl (7-17); CALCIUM 9.6 mg/dL (8.4-10.2); GFR AFRICAN-AMERICAN > 60; GFR NON-AFRICAN AMERICAN > 60
[2017-12-11 15:28] VITALS: BP 114/74; TEMP 97.4; O2SAT 97
[2017-12-11 15:43] VITALS: PULSE 60
--- NOTE | 2017-12-11 15:58 | NM ---
COMPARISON: Chest radiograph 12/10/2017. TECHNIQUE: 40.0 mCi technetium 99-m DTPA 5.0 mCI technetium 99-m MAA administered intravenously. FINDINGS: VENTILATION COMPONENT: Heterogeneous pattern is appreciated in the lungs bilaterally including central airway deposition with limited element of COPD not completely excluded. Chest radiography does not suggest COPD overtly. PERFUSION COMPONENT: No perfusion mismatches bilaterally. Limited small nonsegmental matched defects are seen at the central/inferior bilateral lung martínez with generally homogeneous perfusion uptake appreciated bilaterally otherwise. IMPRESSION: Lowprobability ventilation perfusion scan for pulmonary embolism.
--- NOTE | 2017-12-11 16:08 | CP.PCM.DIS ---
Provider - Provider Date of Admission: 12/10/17 22:51 Attending physician: Ab Lopez MD Primary care physician: Dr Taylor Time Spent in preparation of Discharge (in minutes): 35 Diagnosis - Discharge Diagnosis (1) Chest pain Status: Acute (2) Hypokalemia Status: Acute (3) Leukocytosis Status: Acute (4) HTN (hypertension) Status: Chronic (5) Breast cancer Status: Chronic (6) COPD (chronic obstructive pulmonary disease) Status: Chronic Hospital Course - Lab Results Lab Results: Most Recent Lab Values WBC 35.5 K/uL (4.8-10.8) H 12/11/17 04:25 RBC 3.14 Mil/uL (3.80-5.20) L 12/11/17 04:25 Hgb 11.3 g/dL (12.0-16.0) L 12/11/17 04:25 Hct 33.8 % (34.0-47.0) L 12/11/17 04:25 MCV 107.5 fl (81.0-99.0) H 12/11/17 04:25 MCH 36.0 pg (27.0-31.0) H 12/11/17 04:25 MCHC 33.4 g/dL (33.0-37.0) 12/11/17 04:25 RDW 13.3 % (11.5-14.5) 12/11/17 04:25 Plt Count 231 K/uL (130-400) 12/11/17 04:25 MPV 9.1 fl (7.2-11.7) 12/10/17 22:00 Neut % (Auto) 91.8 % (50.0-75.0) H 12/10/17 22:00 Lymph % (Auto) 2.9 % (20.0-40.0) L 12/10/17 22:00 [place] % (Auto) 4.9 % (0.0-10.0) 12/10/17 22:00 Eos % (Auto) 0.0 % (0.0-4.0) 12/10/17 22:00 Baso % (Auto) 0.4 % (0.0-2.0) 12/10/17 22:00 Neut # (Auto) 25.9 K/uL (1.8-7.0) H 12/10/17 22:00 Lymph # (Auto) 0.8 K/uL (1.0-4.3) L 12/10/17 22:00 [place]undy # (Auto) 1.4 K/uL (0.0-0.8) H 12/10/17 22:00 Eos # (Auto) 0.0 K/uL (0.0-0.7) 12/10/17 22:00 Baso # (Auto) 0.1 K/uL (0.0-0.2) 12/10/17 22:00 Neutrophils % (Manual) 86 % (42-75) H 12/10/17 22:00 Band Neutrophils % 2 % (0-2) 12/10/17 22:00 Lymphocytes % (Manual) 7 % (20-50) L 12/10/17 22:00 Monocytes % (Manual) 5 % (0-10) 12/10/17 22:00 Platelet Estimate Normal (NORMAL) 12/10/17 22:00 Anisocytosis (manual) Slight 12/10/17 22:00 Macrocytosis (manual) Slight 12/10/17 22:00 Ovalocytes Slight 12/10/17 22:00 PT 10.7 Seconds (9.8-13.1) 12/10/17 22:00 INR 1.0 (0.9-1.2) 12/10/17 22:00 APTT 28.9 Seconds (25.6-37.1) 12/10/17 22:00 Sodium 139 mmol/l (132-148) 12/11/17 14:01 Potassium 3.3 MMOL/L (3.6-5.0) L 12/11/17 14:01 Chloride 98 mmol/L (98-107) 12/11/17 14:01 Carbon Dioxide 30 mmol/L (22-30) 12/11/17 14:01 Anion Gap 14 (10-20) 12/11/17 14:01 BUN 15 mg/dl (7-17) 12/11/17 14:01 Creatinine 0.8 mg/dl (0.7-1.2) 12/11/17 14:01 Est GFR ( Amer) > 60 12/11/17 14:01 Est GFR (Non-Af Amer) > 60 12/11/17 14:01 Random Glucose 56 mg/dL (65-105) L 12/11/17 14:01 Calcium 9.6 mg/dL (8.4-10.2) 12/11/17 14:01 Total Bilirubin 0.5 mg/dl (0.2-1.3) 12/10/17 22:00 AST 34 U/L (14-36) 12/10/17 22:00 ALT 42 U/L (9-52) 12/10/17 22:00 Alkaline Phosphatase 85 U/L (38-126) 12/10/17 22:00 Troponin I < 0.0120 ng/mL (0.00-0.120) 12/11/17 14:01 Total Protein 6.9 G/DL (6.3-8.2) 12/10/17 22:00 Albumin 3.7 g/dL (3.5-5.0) 12/10/17 22:00 Globulin 3.2 gm/dL (2.2-3.9) 12/10/17 22:00 Albumin/Globulin Ratio 1.2 (1.0-2.1) 12/10/17 22:00 - Hospital Course Hospital Course: (1) Chest pain likely musculoskeletal Pain ACS and PE ruled out - Pt was observed in Tele, no abn rhythm -serial troponin x 3 negative - CXR : neg -VQ scan : low Probability for PE - received ASA (2) Hypokalemia likely sec to diuretics PO KCl given decrease HCTZ to 12.5 mg daily 3. Leukocytosis likely sec to Neulasta 4. History of Breast Cancer on chemotherapy - ff up with Oncology 5. HTN -cont Norvasc , decrease HCTZ to 12.5 mg daily 6. COPD , chronic - Duoneb treatment q 6 prn DVT prophylaxis Lovenox Discharge Exam - Head Exam Head Exam: ATRAUMATIC, NORMAL INSPECTION, NORMOCEPHALIC - Eye Exam Eye Exam: EOMI, Normal appearance Pupil Exam: NORMAL ACCOMODATION - ENT Exam ENT Exam: Mucous Membranes Moist, Normal External Ear Exam - Neck Exam Neck exam: Full Rom - Respiratory Exam Respiratory Exam: NORMAL BREATHING PATTERN. absent: Rales, Wheezes, Respiratory Distress - Cardiovascular Exam Cardiovascular Exam: REGULAR RHYTHM, +S1, +S2 Additional comments: left chest Kimberly cath - GI/Abdominal Exam GI & Abdominal Exam: Normal Bowel Sounds, Soft. absent: Tenderness - Extremities Exam Extremities exam: full ROM, normal capillary refill, pedal pulses present - Back Exam Back exam: FULL ROM. absent: CVA tenderness (L), CVA tenderness (R) - Neurological Exam Neurological exam: Alert, CN II-XII Intact, Oriented x3, Reflexes Normal - Psychiatric Exam Psychiatric exam: Normal Affect, Normal Mood - Skin Skin Exam: Dry, Normal Color, Warm Discharge Plan - Discharge Medications Prescriptions: Albuterol/Ipratropium [Duoneb 3 mg/0.5 mg (3 ml) UD] 3 ml INH RQ6 PRN #30 neb PRN Reason: Shortness Of Breath - Follow Up Plan Condition: GOOD Disposition: HOME/ ROUTINE Instructions: Hypokalemia (DC), Chest Pain (DC) Additional Instructions: ff up with Dr Taylor ag decrease HCTZ to 12.5 mg daily ( 1/2 tab ) ff up with Oncology as scheduled Return to ED if symptoms recurs Referrals: Kendy Taylor MD [Family Provider] -
== END 2017-12-11 17:55 | disposition home health service (06) ==
LOC: H.ER 20:05 → H.ERHOLD 22:51 → H.TEL 12-11 02:00
PROVIDERS: ADMIT Internal Medicine; ATTEND Internal Medicine
DX: R07.89 Other chest pain (principal); E87.6 Hypokalemia; C50.919 Malignant neoplasm of unspecified site of unspecified female breast; I10 Essential (primary) hypertension; D72.829 Elevated white blood cell count, unspecified; M17.0 Bilateral primary osteoarthritis of knee; J44.9 Chronic obstructive pulmonary disease, unspecified; Z86.718 Personal history of other venous thrombosis and embolism; Z91.041 Radiographic dye allergy status; Z87.891 Personal history of nicotine dependence; Z79.82 Long term (current) use of aspirin; Z91.013 Allergy to seafood
CPT/HCPCS: 36415; 71045; 78582; 80048; 80053; 84484; 85025; 85027; 85610; 85730; 93005; 93970; 94640; 99285; A9524; A9567; G0378; J1650

== ENCOUNTER 2018-03-05 13:47 | Emergency (ER) | payer MEDICARE ==
[2018-03-05 13:54] VITALS: BMI 32.4
[2018-03-05] MEDS ORDERED: Sodium Chloride 0.9% 500 ML IV STA (14:32)
--- NOTE | 2018-03-05 15:22 | ED PDOC ---
HPI: General Adult Time Seen by Provider: 03/05/18 14:20 Chief Complaint (Nursing): Weakness/Neurological Deficit Chief Complaint (Provider): Weakness/Neurological Deficit History Per: Patient History/Exam Limitations: no limitations Onset/Duration Of Symptoms: Days (x 2) Current Symptoms Are (Timing): Still Present Additional Complaint(s): 67 year old female with a history of breast cancer and HTN presents to the ED with generalized weakness for the last 2 days associated with nausea and decreased appetite. Patient reports that 2 days ago she started a new chemotherapy treatment for breast cancer. She was already on chemo with a different agent since October. Yesterday and today she has progressively worsening generalized weakness and is almost unable to keep herself up. Today, patient also reports an episode of mild chest pain and felt like she was on the verge of collapse. Her son is in the hospital with a hemorrhagic CVA, which is adding to her stress. Patient reports no other medical complaints. PMD: Dr. Angelica Taylor dock hand/ oncologist: Dr. Whittington Past Medical History Reviewed: Historical Data, Nursing Documentation, Vital Signs Vital Signs: Last Vital Signs Temp 98.1 F 03/05/18 20:30 Pulse 76 03/05/18 20:30 Resp 17 03/05/18 20:30 BP 112/72 03/05/18 20:30 Pulse Ox 97 03/05/18 20:30 - Medical History PMH: Arthritis (knees), Diverticulitis, Deep Vein Thrombosis, HTN, Malignancy ( breast cancer), Peripheral Edema Denies: Chronic Kidney Disease - Surgical History Surgical History: Appendectomy, Cholecystectomy, Tonsillectomy - Family History Family History: States: Hypertension - Immunization History Hx Tetanus Toxoid Vaccination: No Hx Influenza Vaccination: No Hx Pneumococcal Vaccination: No - Home Medications Home Medications: Ambulatory Orders Medication Instructions Recorded Ondansetron HCl [Zofran] 8 mg PO Q12 12/10/17 amLODIPine [Norvasc] 5 mg PO DAILY 12/10/17 Acetaminophen [Tylenol 325mg tab] 650 mg PO Q6 PRN tab 12/11/17 Albuterol/Ipratropium [Duoneb 3 3 ml INH RQ6 PRN #30 neb 12/11/17 mg/0.5 mg (3 ml) UD] Hydrochlorothiazide [Microzide] 12.5 mg PO DAILY #0 12/11/17 - Allergies Allergies/Adverse Reactions: Allergies Allergy/AdvReac Type Severity Reaction Status Date / Time enalapril Allergy RASH Verified 03/05/18 18:31 iodine Allergy SWELLING Verified 03/05/18 18:31 lisinopril Allergy SWELLING Verified 03/05/18 18:31 shellfish derived AdvReac Severe ITCHING Verified 03/05/18 18:31 metronidazole [From Flagyl] AdvReac ANAPHYLAXIS Verified 03/05/18 18:31 Review of Systems ROS Statement: Except As Marked, All Systems Reviewed And Found Negative (and as per HPI) Constitutional: Positive for: Weakness (generalized, "feels dehyrated") Gastrointestinal: Positive for: Nausea (and decreased jodee) Physical Exam - Reviewed Nursing Documentation Reviewed: Yes Vital Signs Reviewed: Yes - Physical Exam Appears: Positive for: No Acute Distress (appears tired) Head Exam: Positive for: ATRAUMATIC, NORMAL INSPECTION, NORMOCEPHALIC Skin: Positive for: Normal Color, Warm, DRY ENT: Positive for: Pharynx Is (clear), Other (tacky mucous membranes and very dry perioral area) Neck: Positive for: Painless ROM, Supple Cardiovascular/Chest: Positive for: Regular Rate, Rhythm. Negative for: Murmur Respiratory: Positive for: Normal Breath Sounds. Negative for: Wheezing Gastrointestinal/Abdominal: Positive for: Soft. Negative for: Tenderness, Mass , Distended, Guarding Back: Positive for: Normal Inspection. Negative for: Decreased ROM Extremity: Positive for: Pedal Edema (b/l non pitting, doughy edema in lower legs). Negative for: Deformity Neurologic/Psych: Positive for: Alert, Oriented (x3), Mood/Affect (sad mood and affect). Negative for: Motor/Sensory Deficits - Laboratory Results Result Diagrams: 03/05/18 16:25 03/05/18 15:29 - ECG O2 Sat by Pulse Oximetry: 96 (RA) Pulse Ox Interpretation: Normal Medical Decision Making Medical Decision Making: Time: 14:31 Impression: weakness Differential diagnoses include but are not limited to: extreme fatigue, dehydration, electrolyte abnormality, anemia, leukopenia, UTI Initial Plan: --Blood type and screen --EKG --BNP --CMP --Lactic acid --Mag --Lipase --Phosphorus --Troponin I --CBc --PTT --prothrombin time --NS IV 500 mls/hr --Blood cx --urine dip Time: 17:35 --Patient is feeling better and eager to be discharged. --Discussed with patient findings and plan of care. 1744 Pt still orthostatic. Additional fluid bolus ordered. 1999 Pt's orthostatic vitals signs improved. Pt continues to feel better and eager to be discharged. Continued to emphasize importance of the supplementing both potassium and magnesium through appropriate nutrition, as well as encourage continued hydration. Advised follow up with both PMD and Oncologist by end of week. Scribe Attestation: Documented by Ena Jenkins, acting as a scribe for Marianne Lutz MD Provider Scribe Attestation: All medical record entries made by the Scribe were at my direction and personally dictated by me. I have reviewed the chart and agree that the record accurately reflects my personal performance of the history, physical exam, medical decision making, and the department course for this patient. I have also personally directed, reviewed, and agree with the discharge instructions and disposition. Disposition - Clinical Impression Clinical Impression: Dehydration, Hypomagnesemia, Hypokalemia Counseled Patient/Family Regarding: Studies Performed, Diagnosis, Need For Followup - Disposition Disposition: Routine/Home Disposition Time: 20:00 Condition: IMPROVED Additional Instructions: REST AND STAY WELL HYDRATED AND WELL NOURISHED. INCREASE INTAKE OF NUTRIENT RICH FOODS SUCH FRUITS AND VEGETABLES. FOLLOW UP WITH YOUR DOCTOR IN 24-48 HOURS FOR REEVALUATION. RETURN TO ER IMMEDIATELY IF YOUR SYMPTOMS RETURN Instructions: Dehydration, Adult (DC), Hypokalemia (DC), Low Magnesium Level ( DC) Forms: [employer] (Nepali)
[2018-03-05 15:45] LABS: ALB/GLOB RATIO 1.4 (1.0-2.1); ALBUMIN 3.8 g/dL (3.5-5.0); ALT/SGPT 23 U/L (9-52); AST/SGOT 29 U/L (14-36); BLOOD UREA NITROGEN 13 mg/dl (7-17); CALCIUM 9.1 mg/dL (8.4-10.2); GFR AFRICAN-AMERICAN > 60; GFR NON-AFRICAN AMERICAN > 60; LIPASE 446 U/L (23-300)
[2018-03-05] MEDS ORDERED: Potassium Chloride 20 mEq 100 ML IVPB ONE (15:47)
[2018-03-05] MEDS ORDERED: Potassium Chloride 20 mEq ER Tab PO STA (15:48)
[2018-03-05] MEDS ORDERED: Magnesium Sulfate 2 gm/50 ml 2 GM/50 ML BAG IVPB ONE (15:49)
[2018-03-05 15:55] LABS: PARTIAL THROMBOPLASTIN TIME 47.7 Seconds (25.6-37.1); PROTHROMBIN TIME 11.2 Seconds (9.8-13.1)
[2018-03-05 15:58] LABS: B-TYPE NATRIURETIC PEPTIDE 225 pg/ml (0-900)
[2018-03-05] MEDS ORDERED: Potassium Chloride 20 mEq 100 ML ONE (15:59)
[2018-03-05] MEDS ORDERED: Magnesium Sulfate 2 gm/50 ml 2 GM/50 ML BAG ONE (15:59)
[2018-03-05] MEDS ORDERED: Potassium Chloride 20 mEq ER Tab PO ONE (15:59)
[2018-03-05 17:06] LABS: BASO # 0.1 K/uL (0.0-0.2); BASO % 0.3 % (0.0-2.0); EOS % 0.1 % (0.0-4.0); HEMOGLOBIN 10.8 g/dL (12.0-16.0); LYMPH # 0.8 K/uL (1.0-4.3); LYMPH % 3.4 % (20.0-40.0); MEAN CELL VOLUME 101.5 fl (81.0-99.0); MEAN CORPUSCULAR HEMOGLOBIN 33.9 pg (27.0-31.0); MEAN CORPUSCULAR HGB CONC 33.4 g/dL (33.0-37.0); MEAN PLATELET VOLUME 7.9 fl (7.2-11.7); MONO # 0.4 K/uL (0.0-0.8); MONO % 1.4 % (0.0-10.0); NEUT # 23.4 K/uL (1.8-7.0); NEUT % 94.8 % (50.0-75.0); PLATELET COUNT 260 K/uL (130-400); RBC 3.19 Mil/uL (3.80-5.20); RED CELL DISTRIBUTION WIDTH 14.6 % (11.5-14.5); WHITE BLOOD COUNT 24.6 K/uL (4.8-10.8)
[2018-03-05] MEDS ORDERED: Lactated Ringer's 1,000 ML IV STA (17:50)
[2018-03-05 18:29] LABS: ANISOCYTOSIS SLIGHT; BANDS 3 % (0-2); LYMPHOCYTE 4 % (20-50); MONOCYTE 4 % (0-10); NEUTROPHIL 87 % (42-75); PLATELET ESTIMATE NORMAL (NORMAL); POIKILOCYTOSIS SLIGHT; REACTIVE LYMPHOCYTES 2 % (0-0); TOTAL CELLS COUNTED 100
[2018-03-05 18:30] LABS: OVALOCYTES SLIGHT; TEARDROP CELLS SLIGHT
[2018-03-05 20:43] VITALS: BP 112/72; PULSE 76; RESP 17; TEMP 98.1
[2018-03-06 16:01] VITALS: O2SAT 96
--- NOTE | 2018-03-07 10:56 | CARD ---
APPROVED REPORT EKG Measurement Heart [id number] <Conclusion> Sinus rhythm with sinus arrhythmia with 1st degree AV block Otherwise normal ECG
== END 2018-03-05 20:45 | disposition home or self-care (01) ==
LOC: H.ER 13:47
DX: E86.0 Dehydration (principal); E83.42 Hypomagnesemia; E87.6 Hypokalemia; C50.919 Malignant neoplasm of unspecified site of unspecified female breast; I10 Essential (primary) hypertension; Z85.3 Personal history of malignant neoplasm of breast; Z86.718 Personal history of other venous thrombosis and embolism
CPT/HCPCS: 80053; 83605; 83690; 83735; 83880; 84100; 84484; 85025; 85610; 85730; 86850; 86900; 87040; 96361; 96365; 99285; J3480; J7030; J7120